=== PATIENT | male | born 1965 | race Caucasian/White ===

== ENCOUNTER 2017-07-20 16:23 | Inpatient (IN) ==
[2017-07-20 17:37] LABS: INR 1.1; Prothrombin Time 11.4 Seconds (9.4-12.1)
[2017-07-20 17:40] LABS: Activated Partial Thrombo Time 31.5 Seconds (26.0-36.0)
[2017-07-20 17:43] LABS: Basophils # 0.1 K/mcL (0.0-0.2); Basophils % 0.5 %; Eosinophils # 0.3 K/mcL (0.0-0.6); Hematocrit 46.2 % (37.5-50.1); Hemoglobin 14.9 g/dL (12.9-16.9); Immature Granulocytes % 0.8 % (0-4); Lymphocytes # 2.9 K/mcL (0.6-4.6); Lymphocytes % 25.4 %; Mean Corpuscular HGB Conc 32.3 g/dL (31.6-35.5); Mean Corpuscular Hemoglobin 26.3 pg (28.0-33.3); Mean Corpuscular Volume 81.6 fL (83.0-100.0); Mean Platelet Volume 9.4 fL (9.4-12.4); Monocytes # 1.2 K/mcL (0.0-1.3); Monocytes % 10.6 %; Neutrophils # 6.8 K/mcL (1.6-8.9); Platelet Count 370 K/mcL (140-400); Red Blood Count 5.66 M/mcL (4.19-5.50); Red Cell Distribution Width 15.3 % (11.5-14.5); Segmented Neutrophils % 59.7 %
[2017-07-20 17:45] LABS: BUN/Creatinine Ratio 13 (6-26); Blood Urea Nitrogen 13 mg/dL (8-26); Calcium 9.2 mg/dL (8.6-10.8); Carbon Dioxide 25 mEq/L (19-29); Chloride 100 mEq/L (98-109); Glucose 126 mg/dL (70-99); Osmolality,Calculated 290 (280-300); Potassium 3.7 mEq/L (3.5-4.5); Sodium 139 mEq/L (136-145); eGFR For African Americans > 60 (> 60); eGFR For Non-African Americans > 60 (> 60)
[2017-07-20] MEDS ORDERED: 0.9 % Sodium Chloride 500 ML IVC ONE (18:22)
[2017-07-20] MEDS ORDERED: Ipratropium/Albuterol Neb 3 ML IH ONE (19:46)
--- NOTE | 2017-07-20 20:04 | Emergency Department Note ---
Disposition Clinical Impression: Unstable angina pectoris Chest pain Qualifiers: Chest pain type: chest pain due to myocardial ischemia Ischemic chest pain type : unstable angina pectoris Qualified Code(s): I20.0 - Unstable angina Disposition: Home, Self-Care Condition: Fair Time of Disposition: 20:46 Chest Pain HPI - General Chief Complaint: ED Chest Pain Stated Complaint: CP/MELISSA Time Seen by Provider: 07/20/17 18:07 Source: patient Limitations: no limitations Vital Signs Reviewed: Yes Nursing Notes Reviewed: Yes - History of Present Illness HPI Narrative: 51-year-old male presents to ED due to chest pain. He has had recurring chest discomfort with exertional dyspnea over the past couple of weeks. Symptoms are worse with exertion and better with rest. Denies orthopnea. No fevers or chills. No productive cough. Pt complaint: chest pain Onset (ago): week(s) Duration: intermittent Onset: during exertion Pain Location: substernal Severity: moderate Severity scale (1-10): 0 Quality: tightness Pain Radiation: LUE Improves with: rest Worsens with: exertion Associated symptoms: Denies: nausea, vomiting, syncope, palpitations Treatments prior to arrival chest pain: none - Related Data Home Medications Medication Instructions Recorded Confirmed Albuterol Sulfate [Ventolin Hfa] 2 puff IH QID PRN 04/21/17 07/20/17 Aspirin [Lo-Dose Aspirin EC] 81 mg PO DAILY 04/21/17 07/20/17 Carvedilol [Coreg] 6.25 mg PO BIDWM 04/21/17 07/20/17 Ergocalciferol (VITAMIN D2) 2,000 unit PO DAILY 04/21/17 07/20/17 [Vitamin D2] Furosemide [Lasix] 40 mg PO DAILY 04/21/17 07/20/17 Glimepiride [Amaryl] 2 mg PO QAM 04/21/17 07/20/17 Levothyroxine Sodium [Tirosint] 25 mcg PO DAILY 04/21/17 07/20/17 Losartan Potassium [Cozaar] 50 mg PO DAILY 04/21/17 07/20/17 Montelukast Sodium [Singulair] 10 mg PO DAILY 04/21/17 07/20/17 Pantoprazole Sodium [Protonix] 40 mg PO DAILY 04/21/17 07/20/17 Polyethylene Glycol 3350 [MiraLAX] 17 gm PO BID PRN 04/21/17 07/20/17 Simethicone [Phazyme] 180 mg PO BID PRN 04/21/17 07/20/17 Budesonide/Formoterol 80/4.5 2 puff IH BID 07/20/17 07/20/17 [Symbicort 80/4.5] Diclofenac Sodium [Voltaren] 2 - 4 gm TP QID PRN 07/20/17 07/20/17 Empagliflozin [Jardiance] 25 mg PO DAILY 07/20/17 07/20/17 Isosorbide MONOnitrate (24 HR) 30 mg PO DAILY 07/20/17 07/20/17 [Imdur] Lovastatin 40 mg PO HS 07/20/17 07/20/17 Meclizine HCl [Verticalm] 25 mg PO DAILY PRN 07/20/17 07/20/17 Metformin HCl [Glucophage] 1,000 mg PO BID 07/20/17 07/20/17 Nitroglycerin [Nitrolingual] 1 spray TL DAILY 07/20/17 07/20/17 Allergies Allergy/AdvReac Type Severity Reaction Status Date / Time No Known Allergies Allergy Unverified 03/17/17 09:00 All systems ED: reviewed and negative except as stated. Constitutional: Reports: weakness. Denies: fever Cardiovascular: Reports: chest pain. Denies: palpitations Respiratory: Reports: dyspnea. Denies: cough Endocrine: Reports: fatigue Chest Pain PMH - Past Medical History Medical history: Reports: CHF, COPD, coronary artery disease (Cardiac catheter April this year revealed 90% circumflex lesion; treated medically), diabetes , hyperlipidemia, hypertension Surgical history: Reports: orthopedic, other Psychiatric history: Reports: no psych history - Social History Smoking Status: Never smoker Alcohol use: Reports: none Drug use: Reports: none Physical Exam - General Limitations: no limitations General appearance: alert, in no apparent distress - Head Head exam: atraumatic, normocephalic - Eye Eye exam: Present: normal appearance - ENT ENT exam: normal exam, normal oropharynx - Neck Neck exam: Present: normal inspection - Chest Chest inspection: Present: normal inspection, symmetric chest wall rise - Respiratory Respiratory exam: Present: normal lung sounds bilaterally, wheezes. Absent: respiratory distress - Cardiovascular Cardiovascular exam: Present: regular rate, normal rhythm - Abdominal Exam Abdominal exam: Present: soft, Non-Tender, normal bowel sounds - Extremities Exam Extremities exam: Present: normal capillary refill. Absent: tenderness, calf tenderness - Back Exam Back exam: Present: normal inspection - Neurological Exam Neurological exam: Present: alert, oriented X3 - Psychiatric Psychiatric exam: Present: normal affect, normal mood - Skin Skin exam: Present: warm, dry Course - Reevaluation(s) Reevaluation #1: Awaiting CTA reading Time: 20:05 Reevaluation #2: D/W Dr. Diallo to admit; he requested starting IV heparin Time: 20:44 Vital Signs Temperature 98.2 F 07/20/17 16:35 Pulse Rate 106 07/20/17 16:35 Respiratory Rate 16 07/20/17 16:35 Blood Pressure 145/87 07/20/17 16:35 O2 Sat by Pulse Oximetry 93 07/20/17 16:35 Temperature 97.7 F 07/21/17 15:12 Pulse Rate 83 07/21/17 15:12 Respiratory Rate 14 07/21/17 15:12 Blood Pressure 137/69 07/21/17 15:12 O2 Sat by Pulse Oximetry 97 07/21/17 15:12 Oxygen Delivery Oxygen Delivery Nasal Cannula Chest Pain - Lab Data Result diagrams: 07/21/17 04:12 07/21/17 04:12 Lab Results 07/20/17 07/20/17 07/20/17 Range/Units 17:25 17:25 17:25 WBC 11.4 H (4.3-11.1) K/mcL RBC 5.66 H (4.19-5.50) M/mcL Hgb 14.9 (12.9-16.9) g/dL Hct 46.2 (37.5-50.1) % MCV 81.6 L (83.0-100.0) fL MCH 26.3 L (28.0-33.3) pg MCHC 32.3 (31.6-35.5) g/dL RDW 15.3 H (11.5-14.5) % Plt Count 370 (140-400) K/mcL MPV 9.4 (9.4-12.4) fL Immature Gran % 0.8 (0-4) % Seg Neutrophils % 59.7 % Lymphocytes % 25.4 % Monocytes % 10.6 % Eosinophils % 3.0 % Basophils % 0.5 % Neutrophils # 6.8 (1.6-8.9) K/mcL Lymphocytes # 2.9 (0.6-4.6) K/mcL Monocytes # 1.2 (0.0-1.3) K/mcL Eosinophils # 0.3 (0.0-0.6) K/mcL Basophils # 0.1 (0.0-0.2) K/mcL PT 11.4 (9.4-12.1) Seconds INR 1.1 APTT 31.5 (26.0-36.0) Seconds Sodium 139 (136-145) mEq/L Potassium 3.7 (3.5-4.5) mEq/L Chloride 100 (98-109) mEq/L Carbon Dioxide 25 (19-29) mEq/L BUN 13 (8-26) mg/dL Creatinine 1.03 (0.72-1.25) mg/dL Est GFR ( Amer) > 60 (> 60) Est GFR (Non-Af Amer) > 60 (> 60) BUN/Creatinine Ratio 13 (6-26) Glucose 126 H (70-99) mg/dL POC Glucose (58-89) Calculated Osmolality 290 (280-300) Calcium 9.2 (8.6-10.8) mg/dL Troponin I (0-0.03) ng/mL 07/20/17 07/20/17 07/20/17 Range/Units 17:25 21:02 22:41 WBC (4.3-11.1) K/mcL RBC (4.19-5.50) M/mcL Hgb (12.9-16.9) g/dL Hct (37.5-50.1) % MCV (83.0-100.0) fL MCH (28.0-33.3) pg MCHC (31.6-35.5) g/dL RDW (11.5-14.5) % Plt Count (140-400) K/mcL MPV (9.4-12.4) fL Immature Gran % (0-4) % Seg Neutrophils % % Lymphocytes % % Monocytes % % Eosinophils % % Basophils % % Neutrophils # (1.6-8.9) K/mcL Lymphocytes # (0.6-4.6) K/mcL Monocytes # (0.0-1.3) K/mcL Eosinophils # (0.0-0.6) K/mcL Basophils # (0.0-0.2) K/mcL PT (9.4-12.1) Seconds INR APTT 31.5 (26.0-36.0) Seconds Sodium (136-145) mEq/L Potassium (3.5-4.5) mEq/L Chloride (98-109) mEq/L Carbon Dioxide (19-29) mEq/L BUN (8-26) mg/dL Creatinine (0.72-1.25) mg/dL Est GFR ( Amer) (> 60) Est GFR (Non-Af Amer) (> 60) BUN/Creatinine Ratio (6-26) Glucose (70-99) mg/dL POC Glucose 128 H (58-89) Calculated Osmolality (280-300) Calcium (8.6-10.8) mg/dL Troponin I 0.02 (0-0.03) ng/mL - EKG Data EKG attestation: Yes I reviewed and interpreted this EKG. EKG shows normal: sinus rhythm Rate: normal Rhythm: NSR [place]/QRS: normal Critical Care Time Total Critical Care Time: 32 Attestation: The high probability of a clinically significant, sudden or life threatening deterioration of the [cardiovascular] system(s) required my full and direct attention, intervention and personal management. The aggregate critical care time was [32] minutes. This time is in addition to time spent performing reported procedures but includes the following: [x] Data Review and interpretation [x] Patient assessment and monitoring of vital signs [x] Documentation [x] Medication orders and management
[2017-07-20] MEDS ORDERED: Aspirin 81 MG TAB.CHEW PO ONE (20:16)
[2017-07-20] MEDS ORDERED: *HR* Metoprolol 5 MG/5 ML VIAL IVP ONE (20:25)
[2017-07-20] MEDS ORDERED: Heparin 25,000 UNIT/500 ML D5W 25,000 UNIT/500 ML MLS IVC SCH (20:45)
[2017-07-21] MEDS ORDERED: Acetaminophen 325 MG TABLET PO PRN (01:18)
[2017-07-21] MEDS ORDERED: *HR* Promethazine 25 MG/ML VIAL IVP PRN (01:18)
[2017-07-21] MEDS ORDERED: Naloxone 0.4 MG/ML INJ IVP PRN (01:18)
[2017-07-21] MEDS ORDERED: *HR* Morphine 2 MG/ML SYRINGE IVP PRN (01:18)
[2017-07-21] MEDS ORDERED: *HR* Dextrose 50 % in Water (Syg) 50 ML SYRINGE IVP PRN (01:26)
[2017-07-21] MEDS ORDERED: Dextrose Gel 15 GM PO PRN ×2 (01:26)
[2017-07-21] MEDS ORDERED: D5% in Water 1,000 ML IVC PRN (01:26)
[2017-07-21] MEDS ORDERED: Simethicone 80 MG TAB.CHEW PO PRN (01:27)
--- NOTE | 2017-07-21 03:08 | Internal Med History&Physical ---
Date of Encounter: 07/21/17 Time of Encounter: 01:30 Assessment and Plan (1) Unstable angina pectoris Current visit: Yes Status: Acute 1. Patient currently chest pain free. 2. Continue heparin drip. 3. Continue home meds as appropriate. 4. IV Morphine PRN chest pain. 5. Consult cardiology for possible LHC. (2) Type 2 diabetes mellitus Current visit: Yes Status: Chronic 1. Hold oral meds. 2. Will use SSI and monitor glucose. 3. Adjust insulin dosing as needed. Qualifiers: Diabetes mellitus complication status: without complication Diabetes mellitus nursing home insulin use: without nursing home use Qualified Code(s): E11.9 - Type 2 diabetes mellitus without complications (3) Extravasation injury of IV catheter site with other complication Current visit: Yes Status: Acute 1. Hyaluronidase injected per Rn and equipment operator warehouse per protocol after I assessed patient. 2. Patient does not appear to have compartment syndrome on exam. He has intact neurovasculature. 3. Keep arm elevated. 4. I contacted and consulted Dr. Parkinson who will see him this morning. Qualifiers: Encounter type: initial encounter Qualified Code(s): T82.898A - Other specified complication of vascular prosthetic devices, implants and grafts, initial encounter (4) DVT prophylaxis Current visit: Yes Status: Acute 1. Patient remains on heparin drip. Internal Medicine - H&P: HPI Chief complaint: chest pain Admitted From: Emergency Dept Plans for Post Hospital Care: Home History of present illness: Mr. West is a 51 year old male who presented to [facility] with complaints of chest pain and pressure. He has been having significant anginal symptoms, especially with exertion. Symptoms were relieved by rest. He was evaluated by his PCP earlier yesterday who referred him to the ER [facility] for subsequent admission. In the ER, he received an aspirin and beta david and was placed on heparin drip. Cardiology was contacted and consulted by ER. He was subsequently admitted to the hospitalist service. I was called by his nurse STAT to the room once he arrived in the ER. His nurse noted that his right arm is entirely swollen at this time, shortly after having received IV contrast for a CT angiogram done in the ER. Apparently, his IV contrast extravasated into his arm from his IV. According to the 2 NE nurse , patient had not yet received any hyaluronidase injection. I came by to assess patient upon his request and noted his right arm swollen compared his left arm. Patient states this happened right after the injection, and he had pain with the IV contrast. The pain has subsided now, but the swelling persists. He does have a good pulse in his arm and elbow and hand. His neurovascular function remains intact. In particular, he has no sensory deficit and is able to move his right hand and fingers without difficulty. I asked the equipment operator warehouse to come and assist his nurse with hyaluronidase per protocol. I then contacted Dr. Parkinson from orthopedics and requested a consult from him this morning. At the present time, I do not feel he has compartment syndrome, but I asked his nurse to watch him closely and to contact me should he have any neurovascular compromise. Regarding his chest pain, he remains chest pain-free. He denies any dyspnea. He denies any fevers, cough, chest congestion, vomiting, or diarrhea. Past Med Surg Social Fam HX - Past Medical History Attestation: Yes The following information was validated with the patient. Source: patient, old records reviewed Medical history: CHF, COPD, coronary artery disease, diabetes, hyperlipidemia, hypertension Psychiatric history: no psych history - Past Surgical History Surgical History: angioplasty/stent, orthopedic, other - Social History Smoking Status: Never smoker Smokeless Tobacco Status: No Alcohol use: none Drug use: none Current living situation: Home, With Family Activity Level: Independent ambulation Recent Out of Country Travel Within the Last 8 Weeks: No - Family History Mother History Unknown: Yes Living Status: Cause of : myocardial infarction Hx Family Cardiac Disorders: Yes Father History Unknown: Yes Hx Family Cardiac Disorders: Yes Internal Medicine - H&P: Meds Albuterol Sulfate [Ventolin Hfa] 2 puff IH QID PRN 04/21/17 [History] Aspirin [Lo-Dose Aspirin EC] 81 mg PO DAILY 04/21/17 [History] Carvedilol [Coreg] 6.25 mg PO BIDWM 04/21/17 [History] Ergocalciferol (VITAMIN D2) [Vitamin D2] 2,000 unit PO DAILY 04/21/17 [History] Furosemide [Lasix] 40 mg PO DAILY 04/21/17 [History] Glimepiride [Amaryl] 2 mg PO QAM 04/21/17 [History] Levothyroxine Sodium [Tirosint] 25 mcg PO DAILY 04/21/17 [History] Losartan Potassium [Cozaar] 50 mg PO DAILY 04/21/17 [History] Montelukast Sodium [Singulair] 10 mg PO DAILY 04/21/17 [History] Pantoprazole Sodium [Protonix] 40 mg PO DAILY 04/21/17 [History] Polyethylene Glycol 3350 [MiraLAX] 17 gm PO BID PRN 04/21/17 [History] Simethicone [Phazyme] 180 mg PO BID PRN 04/21/17 [History] Budesonide/Formoterol 80/4.5 [Symbicort 80/4.5] 2 puff IH BID 07/20/17 [History ] Diclofenac Sodium [Voltaren] 2 - 4 gm TP QID PRN 07/20/17 [History] Empagliflozin [Jardiance] 25 mg PO DAILY 07/20/17 [History] Isosorbide MONOnitrate (24 HR) [Imdur] 30 mg PO DAILY 07/20/17 [History] Lovastatin 40 mg PO HS 07/20/17 [History] Meclizine HCl [Verticalm] 25 mg PO DAILY PRN 07/20/17 [History] Metformin HCl [Glucophage] 1,000 mg PO BID 07/20/17 [History] Nitroglycerin [Nitrolingual] 1 spray TL DAILY 07/20/17 [History] 3 Allergy/AdvReac Type Severity Reaction Status Date / Time No Known Allergies Allergy Unverified 03/17/17 09:00 - Constitutional Constitutional: no chills, no fever(s), no night sweats - EENT Eyes: no blurry vision, no change in vision Ears: no ear pain, no tinnitus Nose, mouth and throat: no nasal congestion, no sinus pressure, no sore throat - Cardiovascular Cardiovascular ROS IM: chest pain, diaphoresis, dyspnea, dyspnea on exertion, no orthopnea, no paroxysmal nocturnal dyspnea, no syncope - Respiratory Respiratory: no cough, no hemoptysis, no chest congestion - Gastrointestinal Gastrointestinal: no abdominal pain, no diarrhea, no hematemesis, no hematochezia, no melena, no nausea, no vomiting - Genitourinary Genitourinary ROS male: no dysuria, no flank pain, no hematuria - Musculoskeletal Musculoskeletal ROS IM: deformity (right arm swelling after IV contrast study in CT scan), no arthralgias, no back pain - Integumentary Integumentary IM: no rash, no jaundice - Neurological Neurological ROS: no dizziness, no focal weakness, no frequent falls, no headache(s), no tingling - Psychiatric Psychiatric: no anxiety, no depression - Endocrine Endocrine IM: no polydipsia, no polyuria - Allergic/Immunologic Allergic/Immunologic: no wheezing, no GI upset with certain foods - Constitutional Vitals: Temp Pulse Resp BP Pulse Ox 97.4 F L 80 20 123/78 94 07/20/17 22:56 07/20/17 22:56 07/20/17 22:56 07/20/17 22:56 07/20/17 22:56 General appearance: Present: cooperative, A&O X 3, pleasant, no acute distress, answers questions appropriately - Head Head exam: Present: atraumatic, normal inspection - Eye Eye exam: Present: EOMI, normal appearance, PERRL. Absent: scleral icterus Pupils: Present: normal accommodation - ENT ENT exam: Present: normal exam, normal oropharynx. Absent: mucous membranes dry - Neck Neck exam general surgery: Present: full ROM, supple. Absent: tenderness, nuchal rigidity - Expanded Neck Exam Neck exam: Absent: carotid bruit - Respiratory Respiratory exam: Present: CTAB. Absent: chest wall tenderness, rales, rhonchi , wheezes - Cardiovascular Cardiovascular exam: Present: RRR, +S1, +S2. Absent: diastolic murmur, systolic murmur - GI/Abdominal GI/Abdominal exam: Present: normal bowel sounds, soft. Absent: guarding, hepatomegaly, mass, rebound, splenomegaly, tenderness - Extremities Exam Extremities exam: Present: full ROM, normal capillary refill, tenderness (mild pain but prominent swelling right arm from biceps down to wrist from IV dye injection; good pulses in right arm/hand; neurovascular intact), warm, radial pulses palpable and symmetrical. Absent: calf tenderness, mottling - Back Exam Back exam: Present: normal inspection. Absent: CVA tenderness (L), CVA tenderness (R) - Neurological Exam Neurological exam: Present: alert, CN II-XII intact, oriented X3, no focal deficits, strengths equal and symetr throughout - Psychiatric Psychiatric exam: Present: normal affect, normal mood - Skin Skin exam: Present: dry, warm. Absent: rash Internal Med - H&P Results - Labs CBC & Chem 7: 07/20/17 17:25 07/20/17 17:25 - EKG Data -: EKG Interpreted by Myself EKG shows normal: sinus rhythm - EKG Data EKG comments: 07/21/17 03:18 Sinus rhythm; subtle ST depression noted - Diagnostic Studies Chest x-ray Status: image reviewed by me (negative) - VTE Reasons for not Prescribing Prophylaxis: Not indicated-Anticoagulated or INR therapeutic
[2017-07-21 04:35] LABS: Basophils # 0.1 K/mcL (0.0-0.2); Basophils % 0.6 %; Eosinophils # 0.3 K/mcL (0.0-0.6); Hematocrit 41.7 % (37.5-50.1); Hemoglobin 13.5 g/dL (12.9-16.9); Immature Granulocytes % 0.6 % (0-4); Lymphocytes # 2.3 K/mcL (0.6-4.6); Lymphocytes % 27.3 %; Mean Corpuscular HGB Conc 32.4 g/dL (31.6-35.5); Mean Corpuscular Hemoglobin 26.5 pg (28.0-33.3); Mean Corpuscular Volume 81.9 fL (83.0-100.0); Mean Platelet Volume 9.4 fL (9.4-12.4); Monocytes # 0.8 K/mcL (0.0-1.3); Neutrophils # 4.9 K/mcL (1.6-8.9); Platelet Count 297 K/mcL (140-400); Red Blood Count 5.09 M/mcL (4.19-5.50); Red Cell Distribution Width 15.4 % (11.5-14.5); Segmented Neutrophils % 58.5 %
[2017-07-21 04:56] LABS: Alanine Aminotransferase 42 Units/L (0-55); Albumin 3.5 g/dL (3.5-5.0); Albumin/Globulin Ratio 0.9 (1.1-2.2); Alkaline Phosphatase 94 Units/L (38-126); Aspartate Amino Transferase 22 Units/L (5-34); BUN/Creatinine Ratio 14 (6-26); Bilirubin,Total 0.4 mg/dL (0.2-1.2); Blood Urea Nitrogen 12 mg/dL (8-26); Calcium 8.8 mg/dL (8.6-10.8); Carbon Dioxide 24 mEq/L (19-29); Chloride 101 mEq/L (98-109); Chol/HDL Ratio 5.9 (0-4.9); Cholesterol 159 mg/dL (< 200); Globulin 3.7 g/dL (2.4-3.5); Glucose 132 mg/dL (70-99); HDL Cholesterol 27 mg/dL (40-59); LDL Cholesterol,Calculated 71 mg/dL (0-99); Magnesium 1.8 mg/dL (1.6-2.6); Osmolality,Calculated 290 (280-300); Potassium 3.2 mEq/L (3.5-4.5); Sodium 139 mEq/L (136-145); Total Protein 7.2 g/dL (6.0-8.3); Triglycerides 304 mg/dL (< 150); eGFR For African Americans > 60 (> 60); eGFR For Non-African Americans > 60 (> 60)
[2017-07-21] MEDS ORDERED: *HR* Heparin 5,000 UNIT/ML VIAL IVP PRN ×4 (05:43→05:51)
[2017-07-21] MEDS: Insulin LISPRO 300 UNITS/3 ML VIAL SQ SCH ×3 (05:49→19:03)
[2017-07-21] MEDS: Levothyroxine 25 MCG TABLET PO SCH (05:49)
[2017-07-21] MEDS ORDERED: Heparin 25,000 UNIT/500 ML D5W 25,000 UNIT/500 ML MLS IVC SCH (06:00)
--- NOTE | 2017-07-21 07:29 | Orthopedic Consult Note ---
Date of Encounter: 07/21/17 Time of Encounter: 07:28 Assessment and Plan (1) Extravasation injury of IV catheter site with other complication Current Visit: Yes Status: Acute I did discuss the diagnosis in detail with the patient. My recommendation is for elevation, ice, and anti-inflammatories. He has already had significant improvement in the symptoms. No concern for compartment syndrome. No need for surgical intervention. At this point I will be available as needed for reconsultation for any new or worsening concerns. Qualifiers: Encounter type: initial encounter Qualified Code(s): T82.898A - Other specified complication of vascular prosthetic devices, implants and grafts, initial encounter History of Present Illness HPI: Mr. West is a 51 year old male admitted to the hospitalist. Yesterday he underwent CT scan with contrast and an extravasation event occurred in the right upper extremity in the antecubital fossa region. He did have swelling and I was consulted to evaluate the upper extremity for further evaluation and management. The patient notes improvement of his pain which he says is minimal and localized to the anterior distal brachium and antecubital fossa region. No numbness, tingling, or any other associated signs or symptoms. No modifying factors. Past Med Surg Social Fam HX - Past Medical History Medical history: CHF, COPD, coronary artery disease, diabetes, hyperlipidemia, hypertension Psychiatric history: no psych history - Past Surgical History Surgical History: angioplasty/stent, orthopedic, other - Social History Smoking Status: Never smoker Smokeless Tobacco Status: No Alcohol use: none Drug use: none - Family History Mother History Unknown: Yes Living Status: Cause of : myocardial infarction Hx Family Cardiac Disorders: Yes Father History Unknown: Yes Hx Family Cardiac Disorders: Yes Medications and Allergies Albuterol Sulfate [Ventolin Hfa] 2 puff IH QID PRN 04/21/17 [History] Aspirin [Lo-Dose Aspirin EC] 81 mg PO DAILY 04/21/17 [History] Carvedilol [Coreg] 6.25 mg PO BIDWM 04/21/17 [History] Ergocalciferol (VITAMIN D2) [Vitamin D2] 2,000 unit PO DAILY 04/21/17 [History] Furosemide [Lasix] 40 mg PO DAILY 04/21/17 [History] Glimepiride [Amaryl] 2 mg PO QAM 04/21/17 [History] Levothyroxine Sodium [Tirosint] 25 mcg PO DAILY 04/21/17 [History] Losartan Potassium [Cozaar] 50 mg PO DAILY 04/21/17 [History] Montelukast Sodium [Singulair] 10 mg PO DAILY 04/21/17 [History] Pantoprazole Sodium [Protonix] 40 mg PO DAILY 04/21/17 [History] Polyethylene Glycol 3350 [MiraLAX] 17 gm PO BID PRN 04/21/17 [History] Simethicone [Phazyme] 180 mg PO BID PRN 04/21/17 [History] Budesonide/Formoterol 80/4.5 [Symbicort 80/4.5] 2 puff IH BID 07/20/17 [History ] Diclofenac Sodium [Voltaren] 2 - 4 gm TP QID PRN 07/20/17 [History] Empagliflozin [Jardiance] 25 mg PO DAILY 07/20/17 [History] Isosorbide MONOnitrate (24 HR) [Imdur] 30 mg PO DAILY 07/20/17 [History] Lovastatin 40 mg PO HS 07/20/17 [History] Meclizine HCl [Verticalm] 25 mg PO DAILY PRN 07/20/17 [History] Metformin HCl [Glucophage] 1,000 mg PO BID 07/20/17 [History] Nitroglycerin [Nitrolingual] 1 spray TL DAILY 07/20/17 [History] 3 Allergy/AdvReac Type Severity Reaction Status Date / Time No Known Allergies Allergy Unverified 03/17/17 09:00 All Systems Reviewed: A 10-system review of systems was performed and is negative for pertinent findings except as documented above in the HPI. Physical Exam - Constitutional Vitals: Temp Pulse Resp BP Pulse Ox 97.6 F 78 14 136/76 93 07/21/17 06:22 07/21/17 06:22 07/21/17 06:22 07/21/17 06:22 07/21/17 06:22 CONSTITUTIONAL -Vitals reviewed -The patient is well developed, well nourished, well groomed PSYCHIATRIC -Fully alert and oriented -Pleasant mood RIGHT UPPER EXTREMITY Inspection shows minimal swelling to the right brachium and forearm region. Compartments are all soft and compressible and the brachium and forearm. Full active and passive motion of the shoulder, elbow, wrist, and digits The patient can actively flex and extend all digits, extend the thumb, cross the index and long fingers, make an okay sign, and oppose the thumb. The fingertips are all grossly sensate and well-perfused, and the radial artery pulse is 2+. Results - Labs Result Diagrams: 07/21/17 04:12 07/21/17 04:12 Labs: Abnormal lab results MCV 81.9 fL (83.0-100.0) L 07/21/17 04:12 MCH 26.5 pg (28.0-33.3) L 07/21/17 04:12 RDW 15.4 % (11.5-14.5) H 07/21/17 04:12 APTT 37.7 Seconds (26.0-36.0) H 07/21/17 04:12 Potassium 3.2 mEq/L (3.5-4.5) L 07/21/17 04:12 Glucose 132 mg/dL (70-99) H 07/21/17 04:12 POC Glucose 128 (58-89) H 07/21/17 05:46 Globulin 3.7 g/dL (2.4-3.5) H 07/21/17 04:12 Albumin/Globulin Ratio 0.9 (1.1-2.2) L 07/21/17 04:12 Triglycerides 304 mg/dL (< 150) H 07/21/17 04:12 VLDL Cholesterol, Calc 61 mg/dL (< 31) H 07/21/17 04:12 HDL Cholesterol 27 mg/dL (40-59) L 07/21/17 04:12 Cholesterol/HDL Ratio 5.9 (0-4.9) H 07/21/17 04:12 H & H 07/21/17 Range/Units 04:12 Hgb 13.5 (12.9-16.9) g/dL Hct 41.7 (37.5-50.1) % All other labs normal. Consult Discharge Plan - Plan Referrals: Betsy Spencer, LOT ATTENDANT [Primary Care Provider] -
[2017-07-21] MEDS: Budesonide/Formoterol 80/4.5 MDI IH SCH ×2 (08:14→22:34)
[2017-07-21] MEDS ORDERED: Potassium Chloride 20 MEQ, Lidocaine 1% 2 ML in D5% in Water 250 ML IVPB ONE (08:49)
[2017-07-21] MEDS ORDERED: Isosorbide MONOnitrate (24 HR) 30 MG TAB.ER.24H PO SCH (09:00)
[2017-07-21] MEDS ORDERED: Nitroglycerin Spray 4.9 GM BOTTLE TL PRN (09:00)
[2017-07-21] MEDS: Aspirin Enteric Coated 81 MG Tablet PO SCH (09:47)
[2017-07-21] MEDS: Cholecalciferol (D-3) 1,000 UNIT TABLET PO SCH (09:47)
[2017-07-21] MEDS: Isosorbide MONOnitrate (24 HR) 60 MG TAB.ER.24H PO SCH (09:56)
--- NOTE | 2017-07-21 11:20 | Cardiology Consult Note ---
<Keyon Mcdonald - Last Filed: 07/21/17 17:01> Date of Encounter: 07/21/17 Time of Encounter: 11:20 Assessment and Plan (1) Chest pain Current Visit: Yes Status: Acute Per Cardiology: Occurs mainly at rest. Trops - x 3. ECG comparable to baseline. Now CP free. Reports improved with O2. Will DC IV Hep gtt. Qualifiers: Chest pain type: chest pain due to myocardial ischemia Ischemic chest pain type: unstable angina pectoris Qualified Code(s): I20.0 - Unstable angina (2) CAD (coronary artery disease) Current Visit: Yes Status: Chronic Per Cardiology: Known hx of CAD. Last [facility] 04/2017: Lesion Findings/Interventions * Left Main Coronary Artery There is a 30% stenosis in the proximal LMCA. The lesion has a JOSIAH flow of 3. * Left Anterior Descending The LAD is angiographically free of disease. The 1st Diagonal is angiographically free of disease. * Circumflex The Distal Circumflex is small in size. There is a 90% stenosis in the Distal Circumflex. The lesion has a JOSIAH flow of 3. * Right Coronary Artery There is a 30% stenosis in the Mid RCA. The lesion has a JOSIAH flow of 3. Distal circ lesion deemed small vessel being medically managed. On asa, statrin , BB, ARB, long acting nitrate. Will titrate Imdur. Patient agreeable. Will s/o , reconsult PRN, f/u scheduled. Discussed with Dr. Fernandez. Consider titrate Imdur or add Ranexa as outpatient. Qualifiers: Coronary Disease-Associated Artery/Lesion type: andreafski artery [place] vs. transplanted heart: andreafski heart Associated angina: without angina Qualified Code(s): I25.10 - Atherosclerotic heart disease of andreafski coronary artery without angina pectoris (3) Edema Current Visit: Yes Status: Chronic Per Cardiology: Overall edema appears improved from baseline. Weights are improved as well. He reports taking Lasix at home. I provided education regarding low sodium diet and 2 L fluid restriction. Qualifiers: Edema type: unspecified Qualified Code(s): R60.9 - Edema, unspecified Discussion w patient/family: The assessment and plan as outlined above was discussed with the patient who expressed understanding and agreement. All questions were answered. Thank you for involving us in the care of your patient. Please call with any questions. History of Present Illness Consult date: 07/21/17 Requesting physician: Jenaro Brandon Consult reason: CP Chief complaint: CP History of present illness: Mr. West is a 51 year old male with a past hx of CAD. Has known disease being medically managed. C/s for cp. Patient reports midsternal chest tightness at rest while driving this past Thursday. He reports symptoms were intermittent and lasted for a few minutes. He reports multiple recurrences throughout the day. He did not utilize nitroglycerin pills. Reports compliance with medications and taking long-acting nitrate. He reports he saw his PCP earlier this week with ambulation causing increased size of breath and noted to have hypoxia. At that point was sent to the ER. He reports history of COPD and does not utilize home O2. He reports during hospital stay with oxygen chest pain has resolved. He denies any active bleeding or blood loss. Denies any other concerns or complaints. Reports recently treated for ear infection and no longer taking antibiotics. He does report he takes Lasix at home and overall his weights and swelling are improved from baseline. Past Med Surg Social Fam HX - Past Medical History Attestation: Yes The following information was validated with the patient. Source: patient, old records reviewed Medical history: CHF, COPD, coronary artery disease, diabetes, hyperlipidemia, hypertension Psychiatric history: no psych history - Past Surgical History Surgical History: angioplasty/stent, orthopedic, other - Social History Smoking Status: Never smoker Smokeless Tobacco Status: No Alcohol use: none Drug use: none - Family History Mother History Unknown: Yes Living Status: Cause of : myocardial infarction Hx Family Cardiac Disorders: Yes Father History Unknown: Yes Hx Family Cardiac Disorders: Yes Medications and Allergies Albuterol Sulfate [Ventolin Hfa] 2 puff IH QID PRN 04/21/17 [History] Aspirin [Lo-Dose Aspirin EC] 81 mg PO DAILY 04/21/17 [History] Carvedilol [Coreg] 6.25 mg PO BIDWM 04/21/17 [History] Ergocalciferol (VITAMIN D2) [Vitamin D2] 2,000 unit PO DAILY 04/21/17 [History] Furosemide [Lasix] 40 mg PO DAILY 04/21/17 [History] Glimepiride [Amaryl] 2 mg PO QAM 04/21/17 [History] Levothyroxine Sodium [Tirosint] 25 mcg PO DAILY 04/21/17 [History] Losartan Potassium [Cozaar] 50 mg PO DAILY 04/21/17 [History] Montelukast Sodium [Singulair] 10 mg PO DAILY 04/21/17 [History] Pantoprazole Sodium [Protonix] 40 mg PO DAILY 04/21/17 [History] Polyethylene Glycol 3350 [MiraLAX] 17 gm PO BID PRN 04/21/17 [History] Simethicone [Phazyme] 180 mg PO BID PRN 04/21/17 [History] Budesonide/Formoterol 80/4.5 [Symbicort 80/4.5] 2 puff IH BID 07/20/17 [History ] Diclofenac Sodium [Voltaren] 2 - 4 gm TP QID PRN 07/20/17 [History] Empagliflozin [Jardiance] 25 mg PO DAILY 07/20/17 [History] Isosorbide MONOnitrate (24 HR) [Imdur] 30 mg PO DAILY 07/20/17 [History] Lovastatin 40 mg PO HS 07/20/17 [History] Meclizine HCl [Verticalm] 25 mg PO DAILY PRN 07/20/17 [History] Metformin HCl [Glucophage] 1,000 mg PO BID 07/20/17 [History] Nitroglycerin [Nitrolingual] 1 spray TL DAILY 07/20/17 [History] 3 Allergy/AdvReac Type Severity Reaction Status Date / Time No Known Allergies Allergy Unverified 03/17/17 09:00 All Systems Review: A 10-system review of systems was performed and is negative for pertinent findings except as documented above in the HPI. - Cardiovascular Cardiovascular: as per HPI, chest pain at rest, dyspnea on exertion, radiating jaw, neck or arm pain, leg edema Physical Examination Vital Signs, Last 4 Hours Temp Pulse Resp BP Pulse Ox 07/21/17 10:28 97.6 F 83 14 128/68 91 07/21/17 08:14 16 93 General: Conversant, No Apparent Distress HEENT: Atraumatic, Normocephaly, Mucus Membranes Moist Neck: No JVD, Normal carotid pulses Cardiac: Reg Rate and Rhythm, Normal S1 and S2, No Murmur Lungs: Normal Breath Sounds, No Wheeze, Rales, Rhonchi Neuro: Alert and responsive, No focal deficits noted Abdomen: Soft, Non-Tender Skin: No rashes noted on visualized skin Musculoskeletal: No Chest Wall Tenderness Extremities: No Clubbing, No Cyanosis, Normal Pulses, Other (+1 pitting edema bilateral LE) Results 07/21/17 04:12 07/21/17 04:12 Lab Results Laboratory Tests 07/20/17 07/20/17 07/21/17 17:25 17:25 02:46 INR 1.1 Potassium Magnesium AST ALT Troponin I 0.02 0.01 07/21/17 07/21/17 04:12 07:48 INR Potassium 3.2 L Magnesium 1.8 AST 22 ALT 42 Troponin I 0.01 ITS Impressions Chest X-Ray 07/20/17 16:38 IMPRESSION: No acute cardiopulmonary disease. D/ / Jamey Kuo MD / Jamey Kuo MD Interpreting Provider: Jamey Kuo MD Chest CTA 07/20/17 18:18 IMPRESSION: No evidence of pulmonary embolism or acute pulmonary abnormality. Triangular density anterior to the right major fissure centered on axial image 43. This is indeterminate may represent a small focus of atelectasis or scarring, however a developing pulmonary nodule would be difficult to exclude. This measures approximately 4.8 mm. RECOMMENDATIONS: Fleischner Society guidelines for follow-up and management of incidentally detected pulmonary nodules: Single Solid Nodule: Nodule size less than 6 mm In a low-risk patient, no routine follow-up. In a high-risk patient, optional CT at 12 months. Nodule size equals 6-8 mm In a low-risk patient, CT at 6-12 months, then consider CT at 18-24 months. In a high-risk patient, CT at 6-12 months, then CT at 18-24 months. Nodule size greater than 8 mm In a low-risk patient, consider CT, PET/CT, or tissue sampling at 3 months. In a high-risk patient, consider CT, PET/CT, or tissue sampling at 3 months. Multiple Solid Nodules: Nodule size less than 6 mm In a low-risk patient, no routine follow-up. In a high-risk patient, optional CT at 12 months. Nodule size equals 6-8 mm In a low-risk patient, CT at 3-6 months, then consider CT at 18-24 months. In a high-risk patient, CT at 3-6 months, then CT at 18-24 months. Nodule size greater than 8 mm In a low-risk patient, CT at 3-6 months, then consider CT at 18-24 months. In a high-risk patient, CT at 3-6 months, then CT at 18-24 months. - Low risk patients include individuals with minimal or absent history of smoking and other known risk factors. - High risk patients include individuals with a history or smoking or known risk factors. Radiology 2017 http://pubs.rsna.org/doi/full/10.1148/radiol.6110649367 D/ / Tanner Streeter / Tanner Streeter Interpreting Provider: Tanner Streeter Active Medications Acetaminophen (Tylenol) 650 mg PO Q6HR PRN PRN Reason: Mild Pain (1-3) Stop: 01/20/18 01:19 Albuterol Sulfate (Albuterol Inhaler) 2 puff IH QID PRN PRN Reason: Shortness Of Breath Stop: 01/20/18 01:28 Aspirin (Aspirin Ec) 81 mg PO DAILY REPLACED BY [facility] Stop: 01/20/18 09:01 Last Admin: 07/21/17 09:47 Dose: 81 mg Budesonide/Formoterol Fumarate (Symbicort) 2 puff IH BIDR REPLACED BY [facility] PRN Reason: Protocol Stop: 01/20/18 10:01 Last Admin: 07/21/17 08:14 Dose: 2 puff Carvedilol (Coreg) 6.25 mg PO BIDWM JASMIN PRN Reason: Protocol Stop: 01/20/18 08:01 Last Admin: 07/21/17 09:47 Dose: 6.25 mg Dextrose/Water (Dextrose 50% (Syg)) 25 ml IVP AD PRN PRN Reason: Hypoglycemia Stop: 01/20/18 01:27 Glucagon (Glucagen) 1 mg IM ONCE PRN PRN Reason: Hypoglycemia Stop: 01/20/18 01:27 Glucose (Gluctose) 15 gm PO ONCE PRN PRN Reason: Hypoglycemia Stop: 01/20/18 01:27 Glucose (Gluctose) 30 gm PO ONCE PRN PRN Reason: Hypoglycemia Stop: 01/20/18 01:27 Dextrose (Dextrose 5%) 1,000 mls @ 100 mls/hr IVC .Q10H PRN PRN Reason: HYPOGLYCEMIA Stop: 01/20/18 01:27 Insulin Human Lispro (Humalog) 0 units SQ Q6HR JASMIN PRN Reason: Protocol Stop: 01/20/18 06:01 Last Admin: 07/21/17 05:49 Dose: Not Given Isosorbide Mononitrate (Imdur) 60 mg PO DAILY REPLACED BY [facility] Stop: 01/20/18 09:46 Last Admin: 07/21/17 09:56 Dose: 60 mg Levothyroxine Sodium (Synthroid) 25 mcg PO 629 REPLACED BY [facility] Stop: 01/20/18 06:31 Last Admin: 07/21/17 05:49 Dose: 25 mcg Losartan Potassium (Cozaar) 50 mg PO DAILY REPLACED BY [facility] Stop: 01/20/18 09:01 Last Admin: 07/21/17 09:48 Dose: 50 mg Montelukast Sodium (Singulair) 10 mg PO QPM REPLACED BY [facility] Stop: 01/20/18 18:01 Morphine Sulfate (Morphine Sulfate) 2 mg IVP Q4HR PRN PRN Reason: Severe Pain (7-10) Stop: 01/20/18 01:19 Naloxone HCl (Narcan) 0.4 mg IVP Q2MIN PRN PRN Reason: Opioid Reversal Stop: 01/20/18 01:19 Nitroglycerin (Nitroglycerin) 1 spray TL DAILY PRN PRN Reason: CHEST PAIN Stop: 01/20/18 09:01 Omeprazole (Prilosec) 20 mg PO 30 REPLACED BY [facility] Stop: 01/20/18 06:31 Last Admin: 07/21/17 05:49 Dose: 20 mg Polyethylene Glycol (Miralax) 17 gm PO BID PRN PRN Reason: Constipation Stop: 01/20/18 01:28 Promethazine HCl (Phenergan) 12.5 mg IVP Q6HR PRN PRN Reason: Nausea And Vomiting Stop: 01/20/18 01:19 Simethicone (Gas-X) 160 mg PO BID PRN PRN Reason: Gas Simvastatin (Zocor) 20 mg PO HS REPLACED BY [facility] Stop: 01/20/18 21:01 Vitamin D (Vitamin D) 1,000 unit PO DAILY JASMIN Stop: 01/20/18 09:01 Last Admin: 07/21/17 09:47 Dose: 1,000 unit Consult Discharge Plan - Plan Referrals: Betsy Spencer, DOCUMENT ADVISOR [Primary Care Provider] - <Edy Fernandez - Last Filed: 07/22/17 12:39> Date of Encounter: 07/22/17 - Attending Attestation I have personally performed a face to face evaluation on this patient. I have reviewed and agree with the care plan. History and Exam by me shows: 51 YOM with atypical chest pain and recent 04/2017 [facility] with non obstructive CAD ( small vessel disease in the distal CIRC) presents with negative cardiac markers and unchanged EKG. Agree with DC and follow up with cardiology as an OP Assessment and Plan Discussion w patient/family: The assessment and plan as outlined above was discussed with the patient and/or family members who expressed understanding and agreement. All questions were answered. Thank you for involving us in the care of your patient. Please call with any questions. History of Present Illness History of present illness: Mr. West is a 51 year old male All Systems Review: A 10-system review of systems was performed and is negative for pertinent findings except as documented above in the HPI. Physical Examination Vital Signs, Last 4 Hours Temp Pulse Resp BP Pulse Ox 07/22/17 10:57 97.7 F 83 16 101/63 91 Results 07/22/17 05:57 07/22/17 05:57 Lab Results 07/22/17 07/22/17 05:57 05:57 WBC 7.9 Hgb 13.5 Hct 43.5 Plt Count 300 Sodium 136 Potassium 3.9 Chloride 102 Carbon Dioxide 21 BUN 9 Creatinine 0.78 Glucose 144 H Calcium 8.9 Magnesium 2.2
--- NOTE | 2017-07-21 12:32 | Event Note ---
Date of Encounter: 07/21/17 Time of Encounter: 12:32 Patient seen and examined at bedside. Admitted for chest pain with EKG changes. Cardiology evaluation appreciated. medical optimization recommended. Increased Imdur dose Currently chest pain free Reports of having history of COPD/MO and used bipap at bedtime He has remained O2 dependent since hospitalization and reports of having difficulty breathing at baseline. Will obtain 6minute walk test for home O2 qualification Will resume home meds Hypokalemia noted: K supplemented, will monitor electrolytes and replace as needed Likely d/c in am if remains clinically stable.
[2017-07-21] MEDS ORDERED: Insulin LISPRO 300 UNITS/3 ML VIAL SQ SCH (21:00)
[2017-07-22] MEDS: Levothyroxine 25 MCG TABLET PO SCH (05:22)
[2017-07-22 06:42] LABS: Basophils # 0.1 K/mcL (0.0-0.2); Basophils % 0.6 %; Eosinophils # 0.3 K/mcL (0.0-0.6); Eosinophils % 3.4 %; Hematocrit 43.5 % (37.5-50.1); Hemoglobin 13.5 g/dL (12.9-16.9); Immature Granulocytes % 0.6 % (0-4); Lymphocytes # 1.8 K/mcL (0.6-4.6); Lymphocytes % 22.9 %; Mean Corpuscular Hemoglobin 26.2 pg (28.0-33.3); Mean Corpuscular Volume 84.3 fL (83.0-100.0); Mean Platelet Volume 9.4 fL (9.4-12.4); Monocytes # 0.8 K/mcL (0.0-1.3); Monocytes % 9.7 %; Neutrophils # 4.9 K/mcL (1.6-8.9); Platelet Count 300 K/mcL (140-400); Red Blood Count 5.16 M/mcL (4.19-5.50); Red Cell Distribution Width 15.5 % (11.5-14.5); Segmented Neutrophils % 62.8 %
[2017-07-22 06:53] LABS: BUN/Creatinine Ratio 12 (6-26); Blood Urea Nitrogen 9 mg/dL (8-26); Calcium 8.9 mg/dL (8.6-10.8); Carbon Dioxide 21 mEq/L (19-29); Chloride 102 mEq/L (98-109); Glucose 144 mg/dL (70-99); Magnesium 2.2 mg/dL (1.6-2.6); Osmolality,Calculated 283 (280-300); Phosphorous 3.6 mg/dL (2.3-4.7); Potassium 3.9 mEq/L (3.5-4.5); Sodium 136 mEq/L (136-145); eGFR For African Americans > 60 (> 60); eGFR For Non-African Americans > 60 (> 60)
[2017-07-22] MEDS: Budesonide/Formoterol 80/4.5 MDI IH SCH (07:24)
[2017-07-22] MEDS: Isosorbide MONOnitrate (24 HR) 60 MG TAB.ER.24H PO SCH (09:11)
[2017-07-22] MEDS: Aspirin Enteric Coated 81 MG Tablet PO SCH (09:11)
[2017-07-22] MEDS: Cholecalciferol (D-3) 1,000 UNIT TABLET PO SCH (09:11)
[2017-07-22] MEDS: Insulin LISPRO 300 UNITS/3 ML VIAL SQ SCH ×2 (09:12→12:22)
--- NOTE | 2017-07-22 14:06 | Discharge Summary ---
Date of Encounter: 07/22/17 Time of Encounter: 14:05 - Discharge Diagnosis (1) Chest pain Priority: Primary Status: Resolved Qualifiers: Chest pain type: chest pain due to myocardial ischemia Ischemic chest pain type: unstable angina pectoris Qualified Code(s): I20.0 - Unstable angina (2) Type 2 diabetes mellitus Priority: Secondary Status: Chronic Qualifiers: Diabetes mellitus complication status: without complication Diabetes mellitus longterm insulin use: without intermodal dispatcher use Qualified Code(s): E11.9 - Type 2 diabetes mellitus without complications (3) Extravasation injury of IV catheter site with other complication Priority: Secondary Status: Resolved Qualifiers: Encounter type: initial encounter Qualified Code(s): T82.898A - Other specified complication of vascular prosthetic devices, implants and grafts, initial encounter (4) DVT prophylaxis Priority: Secondary Status: Acute (5) CAD (coronary artery disease) Priority: Secondary Status: Chronic Qualifiers: Coronary Disease-Associated Artery/Lesion type: andreafski artery [place] vs. transplanted heart: andreafski heart Associated angina: without angina Qualified Code(s): I25.10 - Atherosclerotic heart disease of andreafski coronary artery without angina pectoris - Discharge Medications Prescriptions: Isosorbide MONOnitrate (24 HR) [Imdur] 60 mg PO DAILY #30 tab.er.24h Home Medications: Albuterol Sulfate [Ventolin Hfa] 2 puff IH QID PRN 04/21/17 [History] Aspirin [Lo-Dose Aspirin EC] 81 mg PO DAILY 04/21/17 [History] Carvedilol [Coreg] 6.25 mg PO BIDWM 04/21/17 [History] Ergocalciferol (VITAMIN D2) [Vitamin D2] 2,000 unit PO DAILY 04/21/17 [History] Furosemide [Lasix] 40 mg PO DAILY 04/21/17 [History] Glimepiride [Amaryl] 2 mg PO QAM 04/21/17 [History] Levothyroxine Sodium [Tirosint] 25 mcg PO DAILY 04/21/17 [History] Losartan Potassium [Cozaar] 50 mg PO DAILY 04/21/17 [History] Montelukast Sodium [Singulair] 10 mg PO DAILY 04/21/17 [History] Pantoprazole Sodium [Protonix] 40 mg PO DAILY 04/21/17 [History] Polyethylene Glycol 3350 [MiraLAX] 17 gm PO BID PRN 04/21/17 [History] Simethicone [Phazyme] 180 mg PO BID PRN 04/21/17 [History] Budesonide/Formoterol 80/4.5 [Symbicort 80/4.5] 2 puff IH BID 07/20/17 [History ] Diclofenac Sodium [Voltaren] 2 - 4 gm TP QID PRN 07/20/17 [History] Empagliflozin [Jardiance] 25 mg PO DAILY 07/20/17 [History] Lovastatin 40 mg PO HS 07/20/17 [History] Meclizine HCl [Verticalm] 25 mg PO DAILY PRN 07/20/17 [History] Metformin HCl [Glucophage] 1,000 mg PO BID 07/20/17 [History] Nitroglycerin [Nitrolingual] 1 spray TL DAILY 07/20/17 [History] Isosorbide MONOnitrate (24 HR) [Imdur] 60 mg PO DAILY #30 tab.er.24h 07/22/17 [ Rx] Allergies/Adverse Reactions: 3 Allergy/AdvReac Type Severity Reaction Status Date / Time No Known Allergies Allergy Unverified 03/17/17 09:00 Date of admission: 07/21/17 01:18 Primary care physician: Betsy Spencer CNP Consults: 07/21/17 01:25 Consult to Cardiology [CONS] Routine Comment: Consulting Provider: Constanza Motley Reason for Consult: unstable angina Call Completed: No Discharging clinician: Jane Swanson Anticipated date of discharge: 07/22/17 - Patient Status Disposition: Home, Self-Care Condition: Good Functional capacity at discharge: independent ambulation Overall status at discharge: patient is back to baseline - Discharge Instructions Follow Up With: Betsy Spencer CNP [Primary Care Provider] - Additional Instructions: Please follow up with your primary care physician within five days after your discharge from the hospital. Please follow up with cardiology within one week after your discharge from the hospital. Your home dose of Imdur has been increased to 60mg once a day. Resume all other medications as prescribed by your primary care physician. - Diet and Activity Activity: increase activity as tolerated Diet: low fat, low cholesterol, low salt diet Hospital course: Mr. West is a 51 year old male with PMH of CAD admitted for chest pain and sob. He was evaluated by cardiology and his home dose of Imdur was increased and no other intervention was recommended. Pt responded well to therapy. He initially required O2 support however did not qualify for home oxygen therapy and has been saturating well on room air. He is currently hemodynamically stable for discharge with follow up with PCP and cardiology. Patient demonstrates understanding of his diagnosis and agrees with the discharge care and plan. - Time Spent with Patient Total time spent providing and/or coordinating discharge services: Less than 30 minutes - Constitutional Vitals: Temp Pulse Resp BP Pulse Ox 97.7 F 83 16 101/63 91 07/22/17 10:57 07/22/17 10:57 07/22/17 10:57 07/22/17 10:57 07/22/17 10:57 General appearance: Present: cooperative, A&O X 3, morbidly obese, pleasant, no acute distress, answers questions appropriately - Head Head exam: Present: atraumatic, normocephalic - Eye Eye exam: Present: conjuntiva pink, sclera anicteric - Respiratory Respiratory exam: Present: CTAB. Absent: respiratory distress, wheezes - Cardiovascular Cardiovascular exam: Present: RRR, +S1, +S2. Absent: diastolic murmur, gallop, rubs, systolic murmur - GI/Abdominal GI/Abdominal exam: Present: normal bowel sounds, soft, no peritoneal signs. Absent: distended, tenderness - Extremities Exam Extremities exam: Present: warm, radial pulses palpable and symmetrical. Absent : calf tenderness - Neurological Exam Neurological exam: Present: alert, oriented X3 - VTE Reasons for not Prescribing Prophylaxis: Not indicated-Anticoagulated or INR therapeutic Documentation of Mechanical Device: Graduated compression elastic hosiery
[2017-07-22 14:53] VITALS: BP 136/76
--- NOTE | 2017-07-22 18:39 | Electrocardiograph Report ---
[place] [id number] Test Date: 2017-07-20 Pat Name: Angelo West Department: 102 Room: [id number] Gender: M Journeyman Pipefitter: Meena : 1965 Requested By: Kendrick Valdez Order Number: [id number] Reading MD: Zion Tejada DO Measurements Intervals [place] Rate: 103 P: 40 MD: 153 QRS: -32 QRSD: 88 T: 11 QT: 269 QTc: 329 Interpretive Statements SINUS TACHYCARDIA MARKED LEFT AXIS DEVIATION NONSPECIFIC ST-T CHANGES Electronically Signed On 07-22-2017 18:38:21 EST by Zion Tejada DO
== END 2017-07-22 17:19 | disposition home or self-care (01) | DRG 198 ==
LOC: EMEROO 16:23 → 2NENU 16:23 → SUATTDRO 07-21 01:18
PROVIDERS: ADMIT Pediatrics; ATTEND Internal Medicine

== ENCOUNTER 2017-10-28 06:17 | Inpatient (IN) ==
--- NOTE | 2017-10-25 22:35 | Discharge Summary ---
<Carlita Hayward - Last Filed: 10/25/17 22:29> Date of Encounter: 10/25/17 - Discharge Diagnosis (1) Arthritis of knee Priority: Primary Status: Acute (2) Status post total bilateral knee replacement Priority: Primary Status: Acute (3) HTN (hypertension) Priority: Secondary Status: Chronic Qualifiers: Hypertension type: essential hypertension Qualified Code(s): I10 - Essential (primary) hypertension (4) COPD (chronic obstructive pulmonary disease) Priority: Secondary Status: Chronic Qualifiers: COPD type: unspecified COPD Qualified Code(s): J44.9 - Chronic obstructive pulmonary disease, unspecified (5) Obesity Priority: Secondary Status: Chronic Qualifiers: Obesity type: due to excess calories Obesity classification: unspecified obesity classification Serious obesity comorbidity presence: unspecified whether serious comorbidity present Qualified Code(s): E66.09 - Other obesity due to excess calories (6) Type 2 diabetes mellitus Priority: Secondary Status: Chronic Qualifiers: Diabetes mellitus skilled nursing insulin use: unspecified watermaster insulin use status Diabetes mellitus complication status: with unspecified complications Qualified Code(s): E11.8 - Type 2 diabetes mellitus with unspecified complications (7) CAD (coronary artery disease) Priority: Secondary Status: Chronic Qualifiers: Coronary Disease-Associated Artery/Lesion type: [place] artery [place] vs. transplanted heart: [place] heart Associated angina: without angina Qualified Code(s): I25.10 - Atherosclerotic heart disease of [place] coronary artery without angina pectoris - Hospital Course Hospital course: Mr. West is a 52 year old male - Time Spent with Patient Total time spent providing and/or coordinating discharge services: - Discharge Medications Home Medications: Albuterol Sulfate [Ventolin Hfa] 2 puff IH QID PRN 04/21/17 [History] Carvedilol [Coreg] 6.25 mg PO BIDWM 04/21/17 [History] Ergocalciferol (VITAMIN D2) [Vitamin D2] 2,000 unit PO DAILY 04/21/17 [History] Furosemide [Lasix] 40 mg PO DAILY 04/21/17 [History] Glimepiride [Amaryl] 2 mg PO QAM 04/21/17 [History] Levothyroxine Sodium [Tirosint] 25 mcg PO DAILY 04/21/17 [History] Losartan Potassium [Cozaar] 50 mg PO DAILY 04/21/17 [History] Pantoprazole Sodium [Protonix] 40 mg PO DAILY 04/21/17 [History] Polyethylene Glycol 3350 [MiraLAX] 17 gm PO BID PRN 04/21/17 [History] Empagliflozin [Jardiance] 25 mg PO DAILY 07/20/17 [History] Lovastatin 40 mg PO HS 07/20/17 [History] Meclizine HCl [Verticalm] 25 mg PO DAILY PRN 07/20/17 [History] Metformin HCl [Glucophage] 1,000 mg PO BID 07/20/17 [History] Nitroglycerin [Nitrolingual] 1 spray TL DAILY 07/20/17 [History] Isosorbide MONOnitrate (24 HR) [Imdur] 60 mg PO DAILY #30 tab.er.24h 07/22/17 [ Rx] Aspirin Enteric Coated [Aspirin EC] 325 mg PO BID #20 tablet.dr 10/25/17 [Rx] OxyCODONE Immed Rel [Roxicodone 5 MG] 5 mg PO Q6HR PRN 7 Days #28 tablet [Rx] Aspirin 81 mg PO DAILY 10/28/17 [History] Fluticasone/Vilanterol [Breo Ellipta 200-25 Mcg INH] 1 puff IH DAILY 10/28/17 [ History] Tiotropium [place] [Spiriva Respimat] 2 puff IH DAILY 10/28/17 [History] Allergies/Adverse Reactions: 3 Allergy/AdvReac Type Severity Reaction Status Date / Time No Known Allergies Allergy Verified 10/28/17 06:48 Primary care physician: Betsy Spencer CNP - Patient Status Disposition: Transfer Inpatient Rehab Fac Condition: Good - Discharge Instructions Follow Up With: Betsy Spencer CNP [Primary Care Provider] - <Marty Devi - Last Filed: 10/30/17 08:16> Orders not resulted at time of discharge: Pending orders 10/28/17 00:01 XR knee LT limited 1-2V [XR] Routine XR knee RT limited 1-2V [XR] Routine Date of Encounter: 10/30/17 Time of Encounter: 08:15 - Discharge Diagnosis (1) Morbid obesity with BMI of 40.0-44.9, adult Priority: Secondary Status: Chronic (2) Type 2 diabetes mellitus Priority: Secondary Status: Chronic Qualifiers: Diabetes mellitus watermaster insulin use: unspecified watermaster insulin use status Diabetes mellitus complication status: with unspecified complications Qualified Code(s): E11.8 - Type 2 diabetes mellitus with unspecified complications (3) CAD (coronary artery disease) Priority: Secondary Status: Chronic Qualifiers: Coronary Disease-Associated Artery/Lesion type: [place] artery [place] vs. transplanted heart: [place] heart Associated angina: without angina Qualified Code(s): I25.10 - Atherosclerotic heart disease of [place] coronary artery without angina pectoris (4) Arthritis of knee Priority: Primary Status: Chronic (5) Status post total bilateral knee replacement Priority: Primary Status: Acute (6) HTN (hypertension) Priority: Secondary Status: Chronic Qualifiers: Hypertension type: essential hypertension Qualified Code(s): I10 - Essential (primary) hypertension (7) COPD (chronic obstructive pulmonary disease) Priority: Secondary Status: Chronic Qualifiers: COPD type: unspecified COPD Qualified Code(s): J44.9 - Chronic obstructive pulmonary disease, unspecified (8) Acute blood loss anemia Priority: Primary Status: Acute - Hospital Course Hospital course: Mr. West is a 52 year old male Status post bilateral total knee replacements patient with Tenderness on the left side will obtain Dopplers before discharge. Otherwise patient uneventful postoperative course received antibiotics physical therapy discharge stable condition. - Time Spent with Patient Total time spent providing and/or coordinating discharge services: Primary care physician: Betsy Spencer CNP - Patient Status Functional capacity at discharge: uses cane/walker Overall status at discharge: patient is progressing back to baseline
--- NOTE | 2017-10-28 06:26 | History & Physical Report ---
Date of Encounter: 10/28/17 Time of Encounter: 06:26 24 Hour HP Update - Instructions Instructions: If the History and Physical is less than 30 days old and was completed prior to A.M. admission and or procedure and has NOT been updated on calendar day of procedure please complete this update prior to performing procedure. - Update Patient reports changes in Medical Condition: No Changes in examination, assessment, or condition: No Changes in Medication: No Preop tests/diagnostics Reviewed: Yes Surgery Remains Indicated: Yes Consent for Planned Operative Procedure(s) Verified: Yes - Pre-Operative Checklist Preoperative Checklist Indicated: No Prophylactic Antibiotic Ordered: Yes Is VTE Prophylaxis Indicated?: Yes
[2017-10-28] MEDS ORDERED: CeFAZolin Syr 3,000MG/30 ML 3,000 MG/30 ML SYRINGE IVPB ONE (06:35)
[2017-10-28] MEDS ORDERED: Ringers Solution, Lactated 1,000 ML IVC SCH ×2 (06:45→11:44)
[2017-10-28] MEDS ORDERED: Famotidine 20 MG/2 ML VIAL IVP ONE (07:07)
[2017-10-28] MEDS ORDERED: Pregabalin 75 MG CAPSULE PO ONE (07:07)
--- NOTE | 2017-10-28 07:22 | Anesthesia Evaluation PreOp ---
Date of Encounter: 10/28/17 Time of Encounter: 07:20 - Past History Planned Operation: Bilateral TKA Cardiac History: HTN, Hyperlipidemia, Other (CAD) Pulmonary History: COPD, [place] Dx (BiPaP) UNIT SUPERVISOR History: Denies Any Significant HX Other Medical History: Diabetes Type II (Accu check 169), Thyroid, Other ( Morbid Obesity) Anesthesia History: No Prior Anesthetic Complications Alcohol Use: none Drug use: none Medications and Allergies Albuterol Sulfate [Ventolin Hfa] 2 puff IH QID PRN 04/21/17 [History] Carvedilol [Coreg] 6.25 mg PO BIDWM 04/21/17 [History] Ergocalciferol (VITAMIN D2) [Vitamin D2] 2,000 unit PO DAILY 04/21/17 [History] Furosemide [Lasix] 40 mg PO DAILY 04/21/17 [History] Glimepiride [Amaryl] 2 mg PO QAM 04/21/17 [History] Levothyroxine Sodium [Tirosint] 25 mcg PO DAILY 04/21/17 [History] Losartan Potassium [Cozaar] 50 mg PO DAILY 04/21/17 [History] Pantoprazole Sodium [Protonix] 40 mg PO DAILY 04/21/17 [History] Polyethylene Glycol 3350 [MiraLAX] 17 gm PO BID PRN 04/21/17 [History] Empagliflozin [Jardiance] 25 mg PO DAILY 07/20/17 [History] Lovastatin 40 mg PO HS 07/20/17 [History] Meclizine HCl [Verticalm] 25 mg PO DAILY PRN 07/20/17 [History] Metformin HCl [Glucophage] 1,000 mg PO BID 07/20/17 [History] Nitroglycerin [Nitrolingual] 1 spray TL DAILY 07/20/17 [History] Isosorbide MONOnitrate (24 HR) [Imdur] 60 mg PO DAILY #30 tab.er.24h 07/22/17 [ Rx] Aspirin Enteric Coated [Aspirin EC] 325 mg PO BID #20 tablet.dr 10/25/17 [Rx] OxyCODONE Immed Rel [Roxicodone 5 MG] 5 mg PO Q6HR PRN 7 Days #28 tablet [Rx] Aspirin 81 mg PO DAILY 10/28/17 [History] Fluticasone/Vilanterol [Breo Ellipta 200-25 Mcg INH] 1 puff IH DAILY 10/28/17 [ History] Tiotropium [place] [Spiriva Respimat] 2 puff IH DAILY 10/28/17 [History] 3 Allergy/AdvReac Type Severity Reaction Status Date / Time No Known Allergies Allergy Verified 10/28/17 06:48 - Meds/Allergy Pre-op Review Medications Reviewed: Yes Allergies Reviewed: Yes Beta Blockers on Current Med List: Yes (Coreg today 0400) Anesthesia Results - Labs Laboratory Tests 10/12/17 10/12/17 10/12/17 15:40 15:40 15:40 Hgb 15.4 Hct 47.6 Plt Count 353 PT 10.4 INR 1.0 APTT 31.1 Sodium 134 L Potassium 3.9 BUN 17 Creatinine 1.02 Hemoglobin A1c 10/12/17 15:40 Hgb Hct Plt Count PT INR APTT Sodium Potassium BUN Creatinine Hemoglobin A1c 8.4 H - Imaging EKG: report reviewed (Sinus Tach) Additional studies: Heart Cath EF 65%, CAD Anesthesia Exam O2 Sat Height 1.7 m Height 1.7 m Height 1.7 m Weight 122.924 kg Weight 122.924 kg Weight 122.924 kg O2 Sat by Pulse Oximetry 95 O2 Sat by Pulse Oximetry 95 Vital Signs Temp Pulse Resp BP Pulse Ox 98.2 F 81 18 143/79 95 10/28/17 06:38 10/28/17 06:38 10/28/17 06:38 10/28/17 06:38 10/28/17 06:38 Height: 5'6 Weight: 270 lbs NPO (# of Hours): MN Pain Scale: 0 - HEENT Pupil (Motor): Pupils equal, EOMI Mallampati: III Teeth: Normal Oral Opening: Less than or equal to 3 - UNIT SUPERVISOR LOC: Oriented UNIT SUPERVISOR Motor: Normal RUE, Normal LUE, Normal RLE, Normal LLE, Normal Face UNIT SUPERVISOR Sensory: Normal: RUE, LUE, RLE, LLE, Face - Cardiac Rhythm: Regular Murmur: None JVD: No Carotid Bruit: No - Pulmonary Breath Sounds: bilateral Clear Respiratory Effort: Symmetrical Anesthesia Assess/Plan ASA Score: 3 (HTN CAD MO COPD DM MO) Modified [place] Scale for Level of Consciousness: Cooperative, oriented, and tranquil Anesthetic Plan: General, Regional Monitoring Plan: Standard Monitors Recovery Plan: PACU (Discussed RA, possible GA, Adductor Canal Blocks, agrees to proceed)
[2017-10-28] MEDS ORDERED: Ethanol\\Acetic Acid\\Na Ace\\Ben 1,000 ML IRRIG.SOLN IR ONE (07:42)
[2017-10-28] MEDS ORDERED: *HR* Morphine Sulfate/PF 10 MG/10 ML AMPUL ONE (07:54)
[2017-10-28] MEDS ORDERED: ROPIVACAINE HCL/PF 0.5% 30 ML VIAL ONE (07:55)
[2017-10-28] MEDS ORDERED: Dexmedetomidine HCl 200 MCG/50 ML MLS IVC ONE (07:55)
[2017-10-28] MEDS ORDERED: *HR* OxyCODONE/APAP 5/325 TABLET PO PRN (08:25)
[2017-10-28] MEDS ORDERED: Naloxone 0.4 MG/ML INJ IVP PRN ×2 (08:25→11:44)
[2017-10-28] MEDS ORDERED: Ondansetron 4 MG/2 ML VIAL IVP PRN ×2 (08:25→11:44)
[2017-10-28] MEDS ORDERED: *HR* PHENYLEPHRINE 1,000 MCG/10 ML SYRINGE IVP ONE (08:37)
--- NOTE | 2017-10-28 08:45 | Anesthesia Procedures ---
Date of Encounter: 10/28/17 Time of Encounter: 07:20 Procedures: Anesthesia - Epidural/Spinal Patient ID/Chart reviewed: Yes Patient examined: Yes Supplemental Oxygen: Nasal Cannula (2) Sedation: Versed (mg): 2 Patient position: upright Local Anesthetic: Lidocaine 1% Interspace Used: L4-L5 Spinal Needle Gauge: 22 Spinal Dose: 1 mg isobaric marcaine Procedure: Patient sitting, monitors placed sterile P&D midline L4-5 plus CSF Vitals + FHT's: O2 Sat Height 1.7 m Height 1.7 m Height 1.7 m Weight 122.924 kg Weight 122.924 kg Weight 122.924 kg O2 Sat by Pulse Oximetry 97 O2 Sat by Pulse Oximetry 96 O2 Sat by Pulse Oximetry 96 O2 Sat by Pulse Oximetry 97 O2 Sat by Pulse Oximetry 95 O2 Sat by Pulse Oximetry 95 Vital Signs Temp Pulse Resp BP Pulse Ox 98.2 F 81 18 143/79 95 10/28/17 06:38 10/28/17 06:38 10/28/17 06:38 10/28/17 06:38 10/28/17 06:38
--- NOTE | 2017-10-28 08:48 | Anesthesia Procedures ---
Date of Encounter: 10/28/17 Time of Encounter: 07:20 Procedures: Anesthesia - Nerve Block Procedure Date: 10/28/17 Time: 07:45 Pre-op Diagnosis: Bilateral Knee Osteoarthritis Surgical Procedure: Bilat TKA Checklist: Correct Patient Identifier Blood Thinner: No Monitor Applied: EKG, BP, Pulse Oximetry Supplemental Oxygen via Nasal Cannula (L/min): 2 Sedation: Versed (mg): 2 Indication: Post Op Analgesia Pre-op Neuro Deficits: No Block Type: Other (Adductor Canal Blocks Bilateral) Catheter placed: No Depth at skin (cm): 4 Sterile Technique: Yes Ultrasound used: Yes Anatomy identified: Yes Visual spread of Local: Yes Neuro Stimulation: No Blood on Needle Aspiration: No Smooth Injection of Local: Yes Pain with Injection of Local: No Prep: Chlorhexadine Needle: 21 x 100 mm Stimuplex Local: Ropivacaine (0.5%), Other (Precedex 100 micrograms) Volume (cc): 30cc Ropiv, 25cc Precedex Number of Attempts: 1 Complications: None/effective block Vitals: Vital Signs/O2 Sat/Glucose, Most Current Temp Pulse Resp BP Pulse Ox 10/28/17 08:16 81 18 141/90 97 10/28/17 08:13 81 18 146/84 96 10/28/17 08:03 80 18 154/93 96 10/28/17 07:52 89 18 130/120 97 10/28/17 06:42 98.2 F 81 18 143/79 95 10/28/17 06:38 98.2 F 81 18 143/79 95
[2017-10-28] MEDS ORDERED: Propofol 500 MG/50 ML INFUS..BTL ONE (09:02)
[2017-10-28] MEDS ORDERED: *HR* Propofol 200 MG/20 ML VIAL IVP ONE (09:02)
[2017-10-28] MEDS ORDERED: Lidocaine -MPF 2% 2 ML VIAL ONE (09:02)
[2017-10-28] MEDS ORDERED: *HR* Midazolam HCl 2 MG/2 ML VIAL ONE (09:02)
[2017-10-28] MEDS ORDERED: *HR* FentaNYL (PF) 100 MCG/2 ML VIAL ONE (09:02)
[2017-10-28] MEDS ORDERED: *HR* Phenylephrine 10 MG/ML VIAL ONE (09:08)
[2017-10-28] MEDS ORDERED: Ketamine *HR* 500 MG/10 ML MDV ONE (09:26)
[2017-10-28] MEDS ORDERED: Ondansetron 4 MG/2 ML VIAL ONE (09:53)
--- NOTE | 2017-10-28 10:17 | Orthopedic Operative Note ---
Date of procedure: 10/28/17 Pre-op diagnosis: Bilateral knee arthritis Post-op diagnosis: same Procedure: Procedure: Bilateral robotic-assisted Total knee replacement Estimated blood loss: 400 cc Hardware: Metal and polyethylene replacement. Merlin Femur:3 Tibia:3 TS insert: 9 Patella: 36 Exam Under anesthesia: Left knee 8 degrees flexion contracture 17 degree varus, right knee 16 degree flexion contracture 14 degree varus as calculated by the robot full flexion and no instability Procedural Notes: Grade 4 arthritic changes all 3 compartments. Operative procedure: The patient was brought to the operating room and placed on the operating room table. After general anesthesia was administered the operative knee was examined. Findings were noted in the exam under anesthesia. The operative extremity was prepped and draped in sterile surgical fashion. The patient received IV antibiotics prior to skin incision. The following will be a dictation for both these any differences will be highlighted. A standard midline incision was made centered over the patella. The incision was made through the skin and subcutaneous tissue. A medial parapatellar tendon approach was performed. Care was taken to preserve tissue along the medial aspect of the patella. And to protect the patella tendon. The deep MCL was released off the medial tibia. The infra patella fat pad was excised. The patella was everted and cut was made at the level of the insertion of the quadriceps and patella tendon. The patella was sized to a 36 bilateral the guide was seated and the lug holes are drilled. Knee was brought into flexion. Patient noted to have Steinmann pins were placed in the tibia and the femur for the tibial and femoral arrays respectively. Checkpoints were also placed in the tibia and the femur for calculation purposes. The knee including the femur and the tibial registered. Osteophytes, ACL and PCL were excised at this point. Extension and flexion were assessed with a valgus stress components were adjusted on the computer to balance the knee. Femoral cuts were made first with robotic assistance, these included the anterior cut posterior cuts chamfer cuts. Tibial cut was then performed with robotic assistance as well. Bone fragments were removed, as well as the medial and lateral meniscus. The size 3 bilateral femoral guide was seated box cut was made lug holes are drilled. The size 3 bilateral tibial tray was seated and prepared with the fin cutter. Trial reduction with the 9 TS Kena bilateral revealed extension of 0 degree and 10 degree varus bilateral and full flexion. No varus valgus instability. Trial reduction revealed excellent patella tracking. All trial components were removed all bony surfaces were irrigated. The Tibia was seated followed by the femur, The Kena size 9 was seated and secured patella. Patient had similar findings for motion and stability. The knee was closed by the PA. The knee was then irrigated out with 2 L of pulse irrigation. The extensor mechanism was closed with #2 FiberWire suture and #2 PDS suture. The subcutaneous tissue was then irrigated and closed deep with #1 PDS suture superficially with 0 PDS suture and skin was closed with zip tie The patient was then placed in a sterile dressing and a postoperative brace extubated and transferred to recovery room in stable condition. Anesthesia: spinal Surgeon: Marty Devi Was there an medical office assistant instructor present: Yes Behavioral Health Case Manager: Carlita Hayward Estimated blood loss (cc): 400 Condition: stable Disposition: PACU
[2017-10-28] MEDS ORDERED: Albuterol 2.5 MG/3 ML NEBULIZER IH ONE (10:47)
--- NOTE | 2017-10-28 11:16 | Anesthesia Evaluation Post Op ---
Date of Encounter: 10/28/17 Time of Encounter: 11:15 - Vital Signs Vital Signs: Vital Signs/O2 Sat/Glucose, Most Current Temp Pulse Resp BP Pulse Ox 10/28/17 11:11 98.0 F 71 16 98/51 93 10/28/17 11:01 76 16 108/54 93 10/28/17 10:51 72 16 85/56 94 10/28/17 10:41 97.0 F L 85 16 83/63 95 10/28/17 08:16 81 18 141/90 97 10/28/17 08:13 81 18 146/84 96 10/28/17 08:03 80 18 154/93 96 10/28/17 07:52 89 18 130/120 97 - Lungs Lungs: Clear Ascult./Percussion - Airway Airway: Non-obstructed - Cardiovascular Regular Rate - Mental Status Mental Status: Alert & Oriented, Answers Appropriately - Pain Pain Scale: 0 - Nausea Vomiting Nausea Vomiting: Not Present - Hydration Hydration: Ice chips - Discharge PostOp Status: Transfer Patient to floor
[2017-10-28 11:33] LABS: Hematocrit 39.7 % (37.5-50.1); Hemoglobin 12.4 g/dL (12.9-16.9)
[2017-10-28] MEDS ORDERED: MOM Conc 10 ML UD.LIQ PO PRN (11:44)
[2017-10-28] MEDS ORDERED: Sennosides 8.6 MG TABLET PO PRN (11:44)
[2017-10-28] MEDS ORDERED: Temazepam 15 MG CAPSULE PO PRN (11:44)
[2017-10-28] MEDS ORDERED: CeFAZolin Syr 3,000MG/30 ML 3,000 MG/30 ML SYRINGE IVPB SCH (11:44)
[2017-10-28] MEDS ORDERED: *HR* OxyCODONE Immed Rel 5 MG TABLET PO PRN (11:44)
[2017-10-28] MEDS ORDERED: Nitroglycerin Spray 4.9 GM BOTTLE TL PRN (11:44)
[2017-10-28] MEDS ORDERED: *HR* Dextrose 50 % in Water (Syg) 50 ML SYRINGE IVP PRN (11:44)
[2017-10-28] MEDS ORDERED: Dextrose Gel 15 GM/37.5 ML TUBE PO PRN ×2 (11:44)
[2017-10-28] MEDS ORDERED: D5% in Water 1,000 ML IVC PRN (11:44)
[2017-10-28] MEDS: Insulin LISPRO 300 UNITS/3 ML VIAL SQ SCH ×3 (12:37→21:43)
[2017-10-28] MEDS: Furosemide 40 MG TABLET PO SCH (12:44)
[2017-10-28] MEDS: Isosorbide MONOnitrate (24 HR) 60 MG TAB.ER.24H PO SCH (12:44)
[2017-10-28] MEDS: Levothyroxine 25 MCG TABLET PO SCH (12:45)
[2017-10-28] MEDS: Aspirin 81 MG TAB.CHEW PO SCH (12:46)
[2017-10-28] MEDS: *HR* Metformin 500 MG TABLET PO SCH ×2 (12:46→17:15)
[2017-10-28] MEDS: *HR* Glimepiride 2 MG TABLET PO SCH (12:46)
[2017-10-28] MEDS: Cholecalciferol (D-3) 1,000 UNIT TABLET PO SCH (12:46)
[2017-10-28] MEDS: (Fluticasone/Vilanterol [Breo Ellipta 200-25 Mcg Inh] IH SCH (12:48)
[2017-10-28] MEDS: (Empagliflozin [Jardiance] 25 MG) PO SCH (12:48)
[2017-10-28] MEDS: Tiotropium 18 MCG inhalation IH SCH (15:18)
--- NOTE | 2017-10-28 16:23 | Physician Discharge Referral ---
ExtendedCare Referral Info Transfer To: [facility] Provider in Charge: Provider in Charge after Transfer: PCP Institutional Level of Care: Skilled - Diagnosis (1) Arthritis of knee Priority: Primary Status: Chronic (2) Status post total bilateral knee replacement Priority: Primary Status: Acute (3) HTN (hypertension) Status: Chronic (4) COPD (chronic obstructive pulmonary disease) Status: Chronic (5) Obesity Status: Chronic (6) Type 2 diabetes mellitus Status: Chronic (7) CAD (coronary artery disease) Status: Chronic - Transfer Medications Home Medications: Albuterol Sulfate [Ventolin Hfa] 2 puff IH QID PRN 04/21/17 [History] Carvedilol [Coreg] 6.25 mg PO BIDWM 04/21/17 [History] Ergocalciferol (VITAMIN D2) [Vitamin D2] 2,000 unit PO DAILY 04/21/17 [History] Furosemide [Lasix] 40 mg PO DAILY 04/21/17 [History] Glimepiride [Amaryl] 2 mg PO QAM 04/21/17 [History] Levothyroxine Sodium [Tirosint] 25 mcg PO DAILY 04/21/17 [History] Losartan Potassium [Cozaar] 50 mg PO DAILY 04/21/17 [History] Pantoprazole Sodium [Protonix] 40 mg PO DAILY 04/21/17 [History] Polyethylene Glycol 3350 [MiraLAX] 17 gm PO BID PRN 04/21/17 [History] Empagliflozin [Jardiance] 25 mg PO DAILY 07/20/17 [History] Lovastatin 40 mg PO HS 07/20/17 [History] Meclizine HCl [Verticalm] 25 mg PO DAILY PRN 07/20/17 [History] Metformin HCl [Glucophage] 1,000 mg PO BID 07/20/17 [History] Nitroglycerin [Nitrolingual] 1 spray TL DAILY 07/20/17 [History] Isosorbide MONOnitrate (24 HR) [Imdur] 60 mg PO DAILY #30 tab.er.24h 07/22/17 [ Rx] Aspirin Enteric Coated [Aspirin EC] 325 mg PO BID #20 tablet. 10/25/17 [Rx] OxyCODONE Immed Rel [Roxicodone 5 MG] 5 mg PO Q6HR PRN 7 Days #28 tablet [Rx] Aspirin 81 mg PO DAILY 10/28/17 [History] Fluticasone/Vilanterol [Breo Ellipta 200-25 Mcg INH] 1 puff IH DAILY 10/28/17 [ History] Tiotropium [place] [Spiriva Respimat] 2 puff IH DAILY 10/28/17 [History] Allergies/Adverse Reactions: 3 Allergy/AdvReac Type Severity Reaction Status Date / Time No Known Allergies Allergy Verified 10/28/17 06:48 - Respiratory Orders Oxygen / L per min ([place] - Bipap machine - 2 LPM at night), None Smoking Cessation: Smoking cessation has been advised. For more information, call the [employer] Tobacco Quit Line at 5-450-RMLY-NOW. - Ancillary Orders May use pressure relief devices daily prn, May go on RUBY w/family/respon green party w /meds at nurse discretion PRN, May consult with Dentist, Pickling Drum Operator, Heat And Frost Insulator Helper PRN - Mobility Orders Chair, Ambulate - Rehabiliation Orders Rehab Potential: Good Rehab Orders: ROM Exercises, Evaluation for Physical Therapy, Evaluation for Occupational Therapy Other: Bilateral TKR Opsite dressing, leave intact until first post-operative visit. If dressing becomes >50% saturated, contact office, remove dressing and place appropriate dressing in its place. Do not allow for dressing to get wet. Zipline dressing in place, plan to remove at POD#14-16. PT: Total Joint Precautions x 6 weeks Apply ICE/cold therapy wrap 3-6x/day for 20 minutes at a time. Encourage ambulation throughout the day and incentive spirometer 10x/hour. Elevate affected extremity above heart as tolerated. Brace: Knee immobilizer at night until first post-operative appointment. CERTIFICATION: I certify that the transfer of the above named patient to an Extended Care Facility is necessary for the continuing treatment of the diagnosis listed. The above information is true and accurate reflection of patient's current condition. Confidential - Redisclosure prohibited without a patient's written consent.
[2017-10-28] MEDS: CeFAZolin Syr 3,000MG/30 ML 3,000 MG/30 ML SYRINGE IVPB SCH (17:13)
[2017-10-28] MEDS: *HR* Enoxaparin 30 MG/0.3 ML SYRINGE SQ SCH (17:15)
[2017-10-28] MEDS ORDERED: *HR* Enoxaparin 30 MG/0.3 ML SYRINGE SQ SCH (18:00)
[2017-10-29] MEDS: CeFAZolin Syr 3,000MG/30 ML 3,000 MG/30 ML SYRINGE IVPB SCH (01:45)
[2017-10-29] MEDS: *HR* Enoxaparin 30 MG/0.3 ML SYRINGE SQ SCH ×2 (05:43→16:45)
[2017-10-29] MEDS: *HR* OxyCODONE Immed Rel 5 MG TABLET PO PRN ×3 (05:45→13:50)
--- NOTE | 2017-10-29 05:59 | Orthopedics Progress Note ---
Date of Encounter: 10/29/17 Time of Encounter: 05:59 - Assessment and Plan (1) Morbid obesity with BMI of 40.0-44.9, adult Current Visit: Yes Status: Chronic (2) Type 2 diabetes mellitus Current Visit: No Status: Chronic Qualifiers: Diabetes mellitus continuous churn buttermaker insulin use: unspecified continuous churn buttermaker insulin use status Diabetes mellitus complication status: with unspecified complications Qualified Code(s): E11.8 - Type 2 diabetes mellitus with unspecified complications (3) CAD (coronary artery disease) Current Visit: No Status: Chronic Qualifiers: Coronary Disease-Associated Artery/Lesion type: [place] artery [place] vs. transplanted heart: [place] heart Associated angina: without angina Qualified Code(s): I25.10 - Atherosclerotic heart disease of [place] coronary artery without angina pectoris (4) Arthritis of knee Current Visit: No Status: Chronic (5) Status post total bilateral knee replacement Current Visit: No Status: Acute (6) HTN (hypertension) Current Visit: No Status: Chronic Qualifiers: Hypertension type: essential hypertension Qualified Code(s): I10 - Essential (primary) hypertension (7) COPD (chronic obstructive pulmonary disease) Current Visit: No Status: Chronic Qualifiers: COPD type: unspecified COPD Qualified Code(s): J44.9 - Chronic obstructive pulmonary disease, unspecified Subjective Interval history: Patient was seen this morning doing well without complaints. Afebrile vital signs stable. Bilateral Operative extremity: Neurovascularly intact Dressing clean dry and intact Calves nontender Assessment and plan: Continue with postoperative care Hematocrit 39 Objective Vital signs: Vital Signs Temp Pulse Resp BP Pulse Ox 10/29/17 04:56 99.1 F 103 18 136/83 94 10/29/17 04:22 16 94 10/28/17 23:23 98.3 F 99 18 119/76 96 10/28/17 22:50 20 92 10/28/17 19:30 97.9 F 99 18 103/58 93 10/28/17 14:07 98.1 F 77 16 112/75 92 10/28/17 12:49 97.6 F 72 16 111/74 92 10/28/17 12:29 97.9 F 66 16 108/73 92 10/28/17 11:21 98.0 F 64 16 105/47 94 10/28/17 11:11 98.0 F 71 16 98/51 93 10/28/17 11:01 76 16 108/54 93 10/28/17 10:51 72 16 85/56 94 10/28/17 10:41 97.0 F L 85 16 83/63 95 10/28/17 08:16 81 18 141/90 97 10/28/17 08:13 81 18 146/84 96 10/28/17 08:03 80 18 154/93 96 10/28/17 07:52 89 18 130/120 97 10/28/17 06:42 98.2 F 81 18 143/79 95 10/28/17 06:38 98.2 F 81 18 143/79 95 Intake and Output 10/28/17 10/28/17 10/29/17 15:59 23:59 07:59 Intake Total 1430 / 1430 600 / 600 Output Total 400 / 400 100 / 100 225 / 225 Balance -400 / -400 1330 / 1330 375 / 375 Intake: IV Fluids 30 / 30 Ancef Syringe 3,000 MG/30 ML 3, 30 / 30 000 mg In 30 ml @ 200 mls/hr IVPB Q8HR JASMIN Rx#:[id number] Oral 1400 / 1400 600 / 600 Output: Urine 100 / 100 225 / 225 Estimated Blood Loss 400 / 400 Other: # Voids 1 Blood Glucose* 152 212 - Labs CBC & BMP: 10/28/17 11:00 Labs: Abnormal lab results Hgb 12.4 g/dL (12.9-16.9) L 10/28/17 11:00 POC Glucose 169 (58-89) H 10/28/17 06:33 - VTE Documentation of Mechanical Device: Venous foot pump, device Consult Discharge Plan - Plan Referrals: Betsy Spencer, ESCALATOR SERVICE MECHANIC [Primary Care Provider] -
[2017-10-29 07:14] LABS: Hematocrit 34.8 % (37.5-50.1)
[2017-10-29 07:20] LABS: Hemoglobin 10.6 g/dL (12.9-16.9)
[2017-10-29] MEDS: Isosorbide MONOnitrate (24 HR) 60 MG TAB.ER.24H PO SCH (08:10)
[2017-10-29] MEDS: Aspirin 81 MG TAB.CHEW PO SCH (08:10)
[2017-10-29] MEDS: *HR* Glimepiride 2 MG TABLET PO SCH (08:10)
[2017-10-29] MEDS: Cholecalciferol (D-3) 1,000 UNIT TABLET PO SCH (08:10)
[2017-10-29] MEDS: Levothyroxine 25 MCG TABLET PO SCH (08:11)
[2017-10-29] MEDS: Insulin LISPRO 300 UNITS/3 ML VIAL SQ SCH ×4 (08:11→21:05)
[2017-10-29] MEDS: *HR* Metformin 500 MG TABLET PO SCH ×2 (08:11→16:46)
[2017-10-29] MEDS: Furosemide 40 MG TABLET PO SCH (08:11)
[2017-10-29] MEDS: (Fluticasone/Vilanterol [Breo Ellipta 200-25 Mcg Inh] IH SCH (08:12)
[2017-10-29] MEDS: (Empagliflozin [Jardiance] 25 MG) PO SCH (08:12)
[2017-10-29 09:40] LABS: BUN/Creatinine Ratio 15 (6-26); Blood Urea Nitrogen 17 mg/dL (6-20); Calcium 8.7 mg/dL (8.6-10.3); Carbon Dioxide 26 mEq/L (23-29); Chloride 98 mEq/L (98-107); Glucose 191 mg/dL (70-105); Osmolality,Calculated 279 (280-300); Potassium 4.4 mEq/L (3.5-5.1); Sodium 131 mEq/L (136-145); eGFR For African Americans > 60 (> 60); eGFR For Non-African Americans > 60 (> 60)
[2017-10-29] MEDS: Tiotropium 18 MCG inhalation IH SCH (11:31)
[2017-10-29] MEDS ORDERED: Acetaminophen 325 MG TABLET PO PRN (13:26)
--- NOTE | 2017-10-29 16:11 | Event Note ---
Date of Encounter: 10/29/17 Time of Encounter: 16:10 PCR - POD#1 Bilateral TKR - (PRP Left Knee). Patient seen at bedside. Doing well Labs reviewed. Pain control: Added Lidoderm patch Dressing to Right knee - changed and new one placed. Participating in PT. All questions and concerns addressed. Educated on use of incentive spirometer. Encouraged ambulation and proper hydration. Patient educated on post-operative restrictions and post-operative care. Addressed: DC ECF, contiuity placed Discharge plan: Bipap at night 2 L O2 LPM
[2017-10-30] MEDS: *HR* Enoxaparin 30 MG/0.3 ML SYRINGE SQ SCH ×2 (05:36→18:03)
[2017-10-30] MEDS: *HR* OxyCODONE Immed Rel 5 MG TABLET PO PRN ×3 (05:41→19:47)
[2017-10-30 06:25] LABS: Hemoglobin 9.3 g/dL (12.9-16.9)
[2017-10-30 06:40] LABS: BUN/Creatinine Ratio 16 (6-26); Blood Urea Nitrogen 16 mg/dL (6-20); Calcium 8.7 mg/dL (8.6-10.3); Carbon Dioxide 27 mEq/L (23-29); Chloride 94 mEq/L (98-107); Glucose 161 mg/dL (70-105); Osmolality,Calculated 277 (280-300); Potassium 4.3 mEq/L (3.5-5.1); Sodium 131 mEq/L (136-145); eGFR For African Americans > 60 (> 60); eGFR For Non-African Americans > 60 (> 60)
--- NOTE | 2017-10-30 08:17 | Orthopedics Progress Note ---
Date of Encounter: 10/30/17 Time of Encounter: 08:16 - Assessment and Plan (1) Morbid obesity with BMI of 40.0-44.9, adult Current Visit: Yes Status: Chronic (2) Type 2 diabetes mellitus Current Visit: No Status: Chronic Qualifiers: Diabetes mellitus terminal operator insulin use: unspecified terminal operator insulin use status Diabetes mellitus complication status: with unspecified complications Qualified Code(s): E11.8 - Type 2 diabetes mellitus with unspecified complications (3) CAD (coronary artery disease) Current Visit: No Status: Chronic Qualifiers: Coronary Disease-Associated Artery/Lesion type: [place] artery [place] vs. transplanted heart: [place] heart Associated angina: without angina Qualified Code(s): I25.10 - Atherosclerotic heart disease of [place] coronary artery without angina pectoris (4) Arthritis of knee Current Visit: No Status: Chronic (5) Status post total bilateral knee replacement Current Visit: No Status: Acute (6) HTN (hypertension) Current Visit: No Status: Chronic Qualifiers: Hypertension type: essential hypertension Qualified Code(s): I10 - Essential (primary) hypertension (7) COPD (chronic obstructive pulmonary disease) Current Visit: No Status: Chronic Qualifiers: COPD type: unspecified COPD Qualified Code(s): J44.9 - Chronic obstructive pulmonary disease, unspecified (8) Acute blood loss anemia Current Visit: Yes Status: Acute Subjective Interval history: Patient was seen this morning doing well without complaints. Afebrile vital signs stable. Bilateral Operative extremity: Neurovascularly intact Dressing clean dry and intact [place] nontender right slightly tender left will obtain Doppler exam Assessment and plan: Continue with postoperative care Hemoglobin 9.3 discharged today if placement established Objective Vital signs: Vital Signs Temp Pulse Resp BP Pulse Ox 10/30/17 07:56 99.1 F 103 16 127/73 95 10/29/17 23:08 98.7 F 101 16 102/64 93 10/29/17 22:41 16 93 10/29/17 21:00 95 10/29/17 20:25 98.8 F 100 16 102/64 93 10/29/17 16:07 16 95 10/29/17 14:35 98.4 F 100 16 102/64 95 10/29/17 11:32 16 95 10/29/17 09:58 98.2 F 105 16 110/67 96 Intake and Output 10/29/17 10/30/1710/30/18 23:59 07:59 15:59 Intake Total 100 / 100 Output Total 475 / 475 Balance -375 / -375 Intake: Oral 100 / 100 Output: Urine 475 / 475 Other: Blood Glucose* 202 177 - Labs CBC & BMP: 10/30/17 05:28 10/30/17 05:28 Labs: Abnormal lab results Hgb 9.3 g/dL (12.9-16.9) L 10/30/17 05:28 Hct 29.0 % (37.5-50.1) L 10/30/17 05:28 Sodium 131 mEq/L (136-145) L 10/30/17 05:28 Chloride 94 mEq/L (98-107) L 10/30/17 05:28 Glucose 161 mg/dL (70-105) H 10/30/17 05:28 POC Glucose 215 (58-89) H 10/29/17 16:21 Calculated Osmolality 277 (280-300) L 10/30/17 05:28 - VTE Documentation of Mechanical Device: Venous foot pump, device Consult Discharge Plan - Plan Referrals: Betsy Spencer, [facility]PER [Primary Care Provider] -
[2017-10-30] MEDS: Insulin LISPRO 300 UNITS/3 ML VIAL SQ SCH ×3 (08:55→18:04)
[2017-10-30] MEDS: Isosorbide MONOnitrate (24 HR) 60 MG TAB.ER.24H PO SCH (08:55)
[2017-10-30] MEDS: *HR* Metformin 500 MG TABLET PO SCH ×2 (08:55→18:04)
[2017-10-30] MEDS: Aspirin 81 MG TAB.CHEW PO SCH (08:55)
[2017-10-30] MEDS: Furosemide 40 MG TABLET PO SCH (08:56)
[2017-10-30] MEDS: (Fluticasone/Vilanterol [Breo Ellipta 200-25 Mcg Inh] IH SCH (08:56)
[2017-10-30] MEDS: Levothyroxine 25 MCG TABLET PO SCH (08:56)
[2017-10-30] MEDS: *HR* Glimepiride 2 MG TABLET PO SCH (08:56)
[2017-10-30] MEDS: Cholecalciferol (D-3) 1,000 UNIT TABLET PO SCH (08:56)
[2017-10-30] MEDS: (Empagliflozin [Jardiance] 25 MG) PO SCH (08:56)
[2017-10-30] MEDS ORDERED: FLUARIX QUAD 2017-18 36MOS UP/PF 0.5 ML SYRINGE IM ONE ×2 (11:20→18:15)
[2017-10-30] MEDS: Tiotropium 18 MCG inhalation IH SCH (11:23)
--- NOTE | 2017-10-30 14:22 | Event Note ---
Date of Encounter: 10/30/17 Time of Encounter: 14:20 PCR - POD#2 Bilateral TKR - (PRP Left Knee). Patient seen at bedside. Doing well Labs reviewed. Pain control: Added Lidoderm patch - helping Dressing to Right knee - changed and new one placed. Participating in PT. All questions and concerns addressed. Educated on use of incentive spirometer. Encouraged ambulation and proper hydration. Patient educated on post-operative restrictions and post-operative care. Addressed: DC ECF continuity placed Discharge plan: Bipap at night 2 L O2 LPM
[2017-10-30 18:50] VITALS: BP 128/68
== END 2017-10-30 19:50 | DRG 302 ==
LOC: SAMDAY 06:17 → 3NENU 11:41
PROVIDERS: ADMIT Orthopaedic Surgery; ATTEND Orthopaedic Surgery

== ENCOUNTER 2018-04-17 10:46 | Observation (INO) ==
[2018-04-17] MEDS ORDERED: Aspirin 81 MG TAB.CHEW PO ONE (11:04)
[2018-04-17] MEDS ORDERED: 0.9 % Sodium Chloride 1,000 ML IVC ONE (11:07)
--- NOTE | 2018-04-17 11:10 | Emergency Department Note ---
Disposition Clinical Impression: Chest pain Qualifiers: Chest pain type: unspecified Qualified Code(s): R07.9 - Chest pain, unspecified Leukocytosis Qualifiers: Leukocytosis type: unspecified Qualified Code(s): D72.829 - Elevated white blood cell count, unspecified Disposition: Admitted As Inpatient Condition: Good Time of Disposition: 12:53 General Adult HPI - General Chief complaint: ED Chest Pain Stated complaint: chest pain, MELISSA Time Seen by Provider: 04/17/18 10:57 Source: patient, family Limitations: no limitations Nursing Notes Reviewed: Yes Vital Signs Reviewed: Yes - History of Present Illness HPI Narrative: Patient is a 52-year-old male that since emergency Department with chest pain. Patient states this been ongoing for the past 2-3 days but has significantly gotten worse this morning. Patient states that the pain is located in the center of his chest and describes it as a tightness. Patient states that he has had pain is radiated up into his left jaw and into his right arm. Patient also states that the pain does radiate into the center of his back between his shoulder blades. Describes it as a sharp pain that radiates into his back. Patient does state that the pain is worse with exertion. Patient states that her shortness of breath gets worse if he walks very short distance. Patient also reports that he has intermittent diaphoresis and nausea associated with this chest pain. Patient states that he had a previous heart catheter approximately one year ago and had a 90% blockage that was unable to be stented due to being a small vessel. Pain Scale: 4 - Related Data Home Medications Medication Instructions Recorded Confirmed Albuterol Sulfate [Ventolin Hfa] 2 puff IH QID PRN 04/21/17 04/17/18 Carvedilol [Coreg] 6.25 mg PO BIDWM 04/21/17 04/17/18 Ergocalciferol (VITAMIN D2) 2,000 unit PO DAILY 04/21/17 04/17/18 [Vitamin D2] Furosemide [Lasix] 40 mg PO DAILY 04/21/17 04/17/18 Glimepiride [Amaryl] 2 mg PO QAM 04/21/17 04/17/18 Levothyroxine Sodium [Tirosint] 25 mcg PO DAILY 04/21/17 04/17/18 Losartan Potassium [Cozaar] 50 mg PO DAILY 04/21/17 04/17/18 Pantoprazole Sodium [Protonix] 40 mg PO DAILY 04/21/17 04/17/18 Polyethylene Glycol 3350 [MiraLAX] 17 gm PO BID PRN 04/21/17 04/17/18 Empagliflozin [Jardiance] 25 mg PO DAILY 07/20/17 04/17/18 Lovastatin 40 mg PO HS 07/20/17 04/17/18 Meclizine HCl [Verticalm] 25 mg PO DAILY PRN 07/20/17 04/17/18 Metformin HCl [Glucophage] 1,000 mg PO BID 07/20/17 04/17/18 Nitroglycerin [Nitrolingual] 1 spray TL DAILY 07/20/17 04/17/18 Aspirin 81 mg PO DAILY 10/28/17 04/17/18 Fluticasone/Vilanterol [Breo 1 puff IH DAILY 10/28/17 04/17/18 Ellipta 200-25 Mcg INH] Tiotropium [place] [Spiriva 2 puff IH DAILY 10/28/17 04/17/18 Respimat] Previous Rx's Medication Instructions Recorded Isosorbide MONOnitrate (24 HR) 60 mg PO DAILY #30 tab.er.24h 07/22/17 [Imdur] Allergies Allergy/AdvReac Type Severity Reaction Status Date / Time No Known Allergies Allergy Verified 04/17/18 13:32 All systems ED: reviewed and negative except as stated. Constitutional: Reports: other (Diaphoresis) Cardiovascular: Reports: chest pain Respiratory: Reports: dyspnea Gastrointestinal: Reports: nausea Past Medical History - Past Medical History Medical history: Reports: arthritis, CHF, COPD, coronary artery disease, diabetes, hyperlipidemia, hypertension Surgical history: Reports: angioplasty/stent, orthopedic, other Psychiatric history: Reports: no psych history - Social History Smoking Status: Former smoker Smokeless Tobacco Status: No Alcohol use: Reports: none Drug use: Reports: none Physical Exam - General Limitations: no limitations General appearance: alert, in no apparent distress - Head Head exam: atraumatic, normocephalic - Eye Eye exam: Present: normal appearance, EOMI - Neck Neck exam: Present: normal inspection, full ROM, trachea midline - Respiratory Respiratory exam: Present: normal lung sounds bilaterally. Absent: respiratory distress, wheezes - Cardiovascular Cardiovascular exam: Present: regular rate, normal rhythm, normal heart sounds, +S1, +S2 - Abdominal Exam Abdominal exam: Present: soft, Non-Tender, normal bowel sounds - Neurological Exam Neurological exam: Present: alert, oriented X3 - Psychiatric Psychiatric exam: Present: normal affect, normal mood - Skin Skin exam: Present: warm, dry, intact Course Vital Signs Temperature 97.9 F 04/17/18 10:49 Pulse Rate 96 04/17/18 10:49 Respiratory Rate 18 04/17/18 10:49 Blood Pressure 161/94 04/17/18 10:49 O2 Sat by Pulse Oximetry 92 04/17/18 10:49 Temperature 97.9 F 04/17/18 11:01 Pulse Rate 96 04/17/18 11:01 Respiratory Rate 18 04/17/18 11:01 Blood Pressure 161/94 04/17/18 11:01 O2 Sat by Pulse Oximetry 92 04/17/18 11:01 Oxygen Delivery Oxygen Delivery Room Air Medical Decision Making - MDM Narrative Medical decision making narrative: Due to patient presented to the emergency department with chest pain and shortness of breath there is concern for possible cardiac involvement. We will obtain basic laboratory tests including CBC, BMP, troponin chest x-ray EKG and a CT angios chest abdomen pelvis to rule out possible dissection due to the patient having pain is radiating from his chest directly into his back between his shoulder blades. She does have an elevated white count of 14. This is nonspecific. Patient's chest x-ray showed no acute cardiopulmonary process. EKG did not show any acute ischemic changes. Rate of his laboratory testing was unremarkable including a negative troponin at this time. However due to the patient's history and presenting symptoms I feel it is important the patient be admitted to the hospital for further evaluation and management. CTA of chest abdomen and pelvis showed no acute evidence of dissection. I called and spoke with the admitting hospitalist Dr. Arguello and he has accepted the patient to their service. Patient will be admitted to the hospital for further evaluation and management. - Medical Records Medical records reviewed: Yes I reviewed the patient's medical records. - Lab Data Lab results reviewed: Yes I reviewed the patient's lab results. Result diagrams: 04/17/18 11:26 04/17/18 11:26 - Radiology Data Radiology results reviewed: Yes I reviewed the patient's radiology results. Abdomen/Pelvis CTA 04/17/18 11:04 IMPRESSION: 1. No acute abnormality identified of the thoracic or abdominal aorta. No evidence of an aneurysm or dissection. 2. Predominately centrilobular ground-glass nodules within the upper lobes bilaterally, which may be infectious or inflammatory in etiology. 3. No acute abnormality identified within the abdomen or pelvis. 4. Diverticulosis without evidence of acute diverticulitis. D/ / Marty Jiménez MD / Marty Jiménez MD Interpreting Provider: Marty Jiménez MD Chest CTA 04/17/18 11:04 IMPRESSION: 1. No acute abnormality identified of the thoracic or abdominal aorta. No evidence of an aneurysm or dissection. 2. Predominately centrilobular ground-glass nodules within the upper lobes bilaterally, which may be infectious or inflammatory in etiology. 3. No acute abnormality identified within the abdomen or pelvis. 4. Diverticulosis without evidence of acute diverticulitis. D/ / Marty Jiménez MD / Marty Jiménez MD Interpreting Provider: Marty Jiménez MD Chest X-Ray 04/17/18 11:04 IMPRESSION: No acute findings. D/ / Karyn Trimble MD / Karyn Trimble MD Interpreting Provider: Karyn Trimble MD - EKG Data EKG #1 EKG attestation: Yes I reviewed and interpreted this EKG. EKG results narrative: EKG shows a sinus rhythm at a rate of 89 bpm, OK interval 153, QRS duration 82, QTC of 425 with a normal axis. No evidence of STEMI on EKG. This is compared to previous EKG on 07/20/17 which showed sinus tachycardia at a rate of 103 bpm. Attestation Statement - Attestation Attestation: I, Naveen Calvert, examined this patient and my medical decision-making was reviewed with the COST ESTIMATING ENGINEER/PA/Advanced Practice Nurse/Resident Physician. I agree with the documented findings, disposition and treatment plan as described except to the extent set forth below. 52-year-old male presents emergency Department with concerns of acute onset chest pain. Patient states pain is been worsening over the past few days intermittently with exertion. Patient states he woke this morning the pain is in the center of his chest and radiates to the middle of his back. He has a history of hypertension, hyperlipidemia, diabetes and a long history of tobacco abuse. Patient does have a history of COPD however he states that this does not feel similar to his previous COPD exacerbations. Initial EKG did not show evidence of acute STEMI. Initial troponin was negative. CTA of the chest did not show evidence of aortic dissection. Patient will be admitted to the hospitalist for further care and evaluation of his acute onset chest pain.
[2018-04-17 11:38] LABS: Basophils # 0.1 K/mcL (0.0-0.2); Basophils % 0.5 %; Eosinophils # 0.3 K/mcL (0.0-0.6); Eosinophils % 2.4 %; Hematocrit 44.7 % (37.5-50.1); Hemoglobin 14.2 g/dL (12.9-16.9); Immature Granulocytes % 0.5 % (0-4); Lymphocytes # 2.2 K/mcL (0.6-4.6); Lymphocytes % 15.5 %; Mean Corpuscular HGB Conc 31.8 g/dL (31.6-35.5); Mean Corpuscular Hemoglobin 25.1 pg (28.0-33.3); Mean Corpuscular Volume 79.1 fL (83.0-100.0); Mean Platelet Volume 9.2 fL (9.4-12.4); Monocytes # 1.3 K/mcL (0.0-1.3); Monocytes % 9.5 %; Platelet Count 344 K/mcL (140-400); Red Blood Count 5.65 M/mcL (4.19-5.50); Red Cell Distribution Width 16.7 % (11.5-14.5); Segmented Neutrophils % 71.6 %
[2018-04-17 11:43] LABS: Prothrombin Time 11.4 Seconds (9.4-12.1)
[2018-04-17 12:06] LABS: BUN/Creatinine Ratio 16 (6-26); Blood Urea Nitrogen 14 mg/dL (6-20); Calcium 9.8 mg/dL (8.6-10.3); Carbon Dioxide 24 mEq/L (23-29); Chloride 97 mEq/L (98-107); Glucose 159 mg/dL (70-105); Osmolality,Calculated 280 (280-300); Potassium 3.9 mEq/L (3.5-5.1); Sodium 133 mEq/L (136-145); eGFR For Non-African Americans > 60 (> 60)
[2018-04-17 12:07] LABS: Troponin I < 0.03 ng/mL (< 0.04)
[2018-04-17] MEDS: Isovue-370 500 ML INFUS..BTL IV ONE (12:41)
[2018-04-17] MEDS ORDERED: Naloxone 0.4 MG/ML INJ IVP PRN (13:48)
[2018-04-17] MEDS ORDERED: Ondansetron 4 MG/2 ML VIAL IVP PRN (13:48)
[2018-04-17] MEDS ORDERED: Nitroglycerin 0.4 MG TAB.SUBL SL PRN (13:48)
--- NOTE | 2018-04-17 13:55 | Internal Med History&Physical ---
Date of Encounter: 04/17/18 Time of Encounter: 13:55 Internal Medicine - H&P: HPI History of present illness: Mr. West is a 52 year old male Past Med Surg Social Fam HX - Past Medical History Medical history: arthritis, CHF, COPD, coronary artery disease, diabetes, hyperlipidemia, hypertension Additional medical history: fatty liver Psychiatric history: no psych history - Past Surgical History Surgical History: angioplasty/stent, orthopedic, other Additional surgical history: b/l knee arthroscopy, CTR to left, Heart cath 2016 - Social History Smoking Status: Former smoker Smokeless Tobacco Status: No Alcohol use: none Drug use: none - Family History Mother Living Status: Hx Family Cardiac Disorders: Yes Father Living Status: Still Living Hx Family Cardiac Disorders: Yes Internal Medicine - H&P: Meds Albuterol Sulfate [Ventolin Hfa] 2 puff IH QID PRN 04/21/17 [History] Carvedilol [Coreg] 6.25 mg PO BIDWM 04/21/17 [History] Ergocalciferol (VITAMIN D2) [Vitamin D2] 2,000 unit PO DAILY 04/21/17 [History] Furosemide [Lasix] 40 mg PO DAILY 04/21/17 [History] Glimepiride [Amaryl] 2 mg PO QAM 04/21/17 [History] Levothyroxine Sodium [Tirosint] 25 mcg PO DAILY 04/21/17 [History] Losartan Potassium [Cozaar] 50 mg PO DAILY 04/21/17 [History] Pantoprazole Sodium [Protonix] 40 mg PO DAILY 04/21/17 [History] Polyethylene Glycol 3350 [MiraLAX] 17 gm PO BID PRN 04/21/17 [History] Empagliflozin [Jardiance] 25 mg PO DAILY 07/20/17 [History] Lovastatin 40 mg PO HS 07/20/17 [History] Meclizine HCl [Verticalm] 25 mg PO DAILY PRN 07/20/17 [History] Metformin HCl [Glucophage] 1,000 mg PO BID 07/20/17 [History] Nitroglycerin [Nitrolingual] 1 spray TL DAILY 07/20/17 [History] Isosorbide MONOnitrate (24 HR) [Imdur] 60 mg PO DAILY #30 tab.er.24h 12/06/17 [ Rx] Aspirin 81 mg PO DAILY 10/28/17 [History] Fluticasone/Vilanterol [Breo Ellipta 200-25 Mcg INH] 1 puff IH DAILY 10/28/17 [ History] Tiotropium [place] [Spiriva Respimat] 2 puff IH DAILY 10/28/17 [History] 3 Allergy/AdvReac Type Severity Reaction Status Date / Time No Known Allergies Allergy Verified 04/17/18 13:32 All Systems PM: A 10-system review of systems was performed and is negative for pertinent findings except as documented above in the HPI. - Constitutional Vitals: Temp Pulse Resp BP Pulse Ox 97.9 F 96 18 161/94 92 04/17/18 11:01 04/17/18 11:01 04/17/18 11:01 04/17/18 11:01 04/17/18 11:01 Internal Med - H&P Results - Labs CBC & Chem 7: 04/17/18 11:26 04/17/18 11:26 - Time Spent With Patient Total time spent is greater than 50% in coordination of care (as documented) at patient's floor/unit and/or counseling patient:
[2018-04-17] MEDS ORDERED: *HR* HYDROcodone/Acet 5/325 mg TABLET PO PRN (14:01)
[2018-04-17] MEDS ORDERED: Acetaminophen 325 MG TABLET PO PRN (14:01)
[2018-04-17] MEDS ORDERED: *HR* Dextrose 50 % in Water (Syg) 50 ML SYRINGE IVP PRN (14:08)
[2018-04-17] MEDS ORDERED: D5% in Water 1,000 ML IVC PRN (14:08)
[2018-04-17] MEDS ORDERED: Dextrose Gel 15 GM/37.5 ML TUBE PO PRN ×2 (14:08)
--- NOTE | 2018-04-17 14:54 | Internal Med History&Physical ---
<PeggyAlan - Last Filed: 04/17/18 16:01> Date of Encounter: 04/17/18 Time of Encounter: 13:00 Internal Medicine - H&P: HPI Chief complaint: CP Admitted From: Emergency Dept Plans for Post Hospital Care: Home History of present illness: Mr. West is a 52 year old male w/PMH of arthritis, CHF, COPD with emphysema, CAD, diabetes controlled with oral anti-hyperglycemics, HLD, and HTN presents from the ED with chief complaint chest pain that began 3-4 days ago and has worsened over the past 24 hours. Sx came on at rest while driving. Reports previous stress test last year that was abnormal resulting in heart cath w/o stent placement. Pt. describes pain as centralized chest pressure w/squeezing w/ radiation to left jaw, left arm, and back. Alleviated by rest and nitro. Aggravated by exertion. Associated sx: Nausea, diaphoresis, SOB, headache, dizziness. Patient reports cough w/sputum production but denies recent illness , fever, chills, vomiting, changes in vision, unusual bleeding, abdominal pain, diarrhea, constipation, numbness, tingling, pre-syncope, or syncope. Past Med Surg Social Fam HX - Past Medical History Source: patient, old records reviewed, obtained from family Medical history: arthritis, CHF, COPD, coronary artery disease, diabetes, hyperlipidemia, hypertension Additional medical history: fatty liver Psychiatric history: no psych history - Past Surgical History Surgical History: angioplasty/stent (0 stents), orthopedic, other Additional surgical history: b/l knee arthroscopy, CTR to left, Heart cath 2016 - Social History Smoking Status: Former smoker Packs per day: 2.5 PPD - Reports quitting in 2000 Smokeless Tobacco Status: No Alcohol use: none Drug use: none Current living situation: Home, With Family Activity Level: Independent ambulation Recent Out of Country Travel Within the Last 8 Weeks: No Exposure or Possible Exposure to Illness During Travel: No - Family History Mother Race: Family Member Ethnicity: Non- Living Status: Age at : 64 Cause of : AL Hx Family Cardiac Disorders: Yes (AL, CVA) Hx Family Endocrine Disorder: Yes (DM) Hx Family Neurologic Disorders: Yes (CVA) Father Race: Family Member Ethnicity: Non- Living Status: Still Living Hx Family Cardiac Disorders: Yes (CAD, [place] x3, Stents) Brother Race: Family Member Ethnicity: Non- Living Status: Still Living Hx Family Cardiac Disorders: Yes (AL @ age 44, Triple bypass) Hx Family Endocrine Disorder: Yes (DM) Internal Medicine - H&P: Meds Albuterol Sulfate [Ventolin Hfa] 2 puff IH QID PRN 04/21/17 [History] Carvedilol [Coreg] 6.25 mg PO BIDWM 04/21/17 [History] Ergocalciferol (VITAMIN D2) [Vitamin D2] 2,000 unit PO DAILY 04/21/17 [History] Furosemide [Lasix] 40 mg PO DAILY 04/21/17 [History] Glimepiride [Amaryl] 2 mg PO QAM 04/21/17 [History] Levothyroxine Sodium [Tirosint] 25 mcg PO DAILY 04/21/17 [History] Losartan Potassium [Cozaar] 50 mg PO DAILY 04/21/17 [History] Pantoprazole Sodium [Protonix] 40 mg PO DAILY 04/21/17 [History] Polyethylene Glycol 3350 [MiraLAX] 17 gm PO BID PRN 04/21/17 [History] Empagliflozin [Jardiance] 25 mg PO DAILY 07/20/17 [History] Lovastatin 40 mg PO HS 07/20/17 [History] Meclizine HCl [Verticalm] 25 mg PO DAILY PRN 07/20/17 [History] Metformin HCl [Glucophage] 1,000 mg PO BID 07/20/17 [History] Nitroglycerin [Nitrolingual] 1 spray TL DAILY 07/20/17 [History] Isosorbide MONOnitrate (24 HR) [Imdur] 60 mg PO DAILY #30 tab.er.24h 07/22/17 [ Rx] Aspirin 81 mg PO DAILY 10/28/17 [History] Fluticasone/Vilanterol [Breo Ellipta 200-25 Mcg INH] 1 puff IH DAILY 10/28/17 [ History] Tiotropium [place] [Spiriva Respimat] 2 puff IH DAILY 10/28/17 [History] 3 Allergy/AdvReac Type Severity Reaction Status Date / Time No Known Allergies Allergy Verified 04/17/18 13:32 All Systems PM: A 10-system review of systems was performed and is negative for pertinent findings except as documented above in the HPI. - Constitutional Constitutional: as per HPI, no chills, no fever(s), no night sweats - EENT Eyes: no change in vision, no discharge, no pain, no photophobia Ears: no ear discharge, no ear pain, no tinnitus Nose, mouth and throat: no dysphagia, no nasal discharge, no neck pain, no sore throat - Breasts Breasts: as per HPI - Cardiovascular Cardiovascular ROS IM: as per HPI, chest pain, diaphoresis, dyspnea, dyspnea on exertion, lightheadedness, no palpitations, no syncope - Respiratory Respiratory: as per HPI, cough, dyspnea, dyspnea on exertion, excessive phlegm production, no wheezing - Gastrointestinal Gastrointestinal: as per HPI, nausea, no abdominal pain, no diarrhea, no hematemesis, no hematochezia, no melena, no vomiting - Genitourinary Genitourinary ROS male: as per HPI - Musculoskeletal Musculoskeletal ROS IM: arthralgias, no numbness, no tingling - Integumentary Integumentary IM: no rash, no unusual bruising - Neurological Neurological ROS: as per HPI, dizziness, no confusion, no convulsions, no focal weakness, no numbness, no tingling, no tremor(s) - Psychiatric Psychiatric: as per HPI - Endocrine Endocrine IM: as per HPI - Hematologic/Lymphatic Hematologic/Lymphatic: no easy bruising - Allergic/Immunologic Allergic/Immunologic: as per HPI - Constitutional Vitals: Temp Pulse Resp BP Pulse Ox 97.9 F 76 18 133/79 94 04/17/18 11:01 04/17/18 14:00 04/17/18 14:00 04/17/18 14:00 04/17/18 14:00 General appearance: Present: cooperative, A&O X 3, pleasant, no acute distress, obese, answers questions appropriately Exam: Pt. examined at bedside. Pt. resting comfortably in bed reporting no CP at present. Stated CP started 3-4 days ago as centralized squeezing in chest w/ radiation to left arm, left jaw, and back. Nitro spray helped pain. Reports being nauseous, SOB w/headache. Also reports dizziness w/standing and cough w/ sputum production. Denies other sx at this time. - Head Head exam: Present: atraumatic, normocephalic - Eye Eye exam: Present: PERRL, conjuntiva pink, sclera anicteric Pupils: Present: PERRL - ENT ENT exam: Present: normal exam - Neck Neck exam general surgery: Present: normal inspection, supple, trachea midline. Absent: lymphadenopathy - Respiratory Respiratory exam: Present: CTAB. Absent: accessory muscle use, rales, rhonchi, wheezes - Cardiovascular Cardiovascular exam: Present: RRR, +S1, +S2. Absent: diastolic murmur, gallop, rubs, systolic murmur - GI/Abdominal GI/Abdominal exam: Present: normal bowel sounds, soft, no peritoneal signs. Absent: distended, tenderness - Rectal Rectal exam: Present: deferred - Additional comments: exam deferred. - Extremities Exam Extremities exam: Present: warm, radial pulses palpable and symmetrical. Absent : calf tenderness, cyanotic, pedal edema - Back Exam Back exam: Present: normal inspection - Neurological Exam Neurological exam: Present: alert, CN II-XII intact, oriented X3, no focal deficits. Absent: pronater drift, facial droop, speech deficit - Psychiatric Psychiatric exam: Present: normal affect, normal mood - Skin Skin exam: Present: dry, intact Internal Med - H&P Results - Labs CBC & Chem 7: 04/17/18 11:26 04/17/18 11:26 - EKG Data EKG shows normal: sinus rhythm - EKG Data Prior EKG available for review: yes Interpretation IM: normal EKG EKG comments: 04/17/18 15:28 EKG dated 07/20/17 shows sinus tachycardia with marked left axis deviation and nonspecific ST-T changes. EKG dated 04/17/18 shows sinus rhythm w/normal P axis and V-rate of 50-99. - Diagnostic Studies Chest x-ray Additional comments: Impressions Chest X-Ray 04/17/18 11:04 IMPRESSION: No acute findings. D/ / Karyn Trimble MD / Karyn Trimble MD Interpreting Provider: Karyn Trimble MD CT scan - abdomen Additional comments: Impressions Abdomen/Pelvis CTA 04/17/18 11:04 IMPRESSION: 1. No acute abnormality identified of the thoracic or abdominal aorta. No evidence of an aneurysm or dissection. 2. Predominately centrilobular ground-glass nodules within the upper lobes bilaterally, which may be infectious or inflammatory in etiology. 3. No acute abnormality identified within the abdomen or pelvis. 4. Diverticulosis without evidence of acute diverticulitis. D/ / Marty Jiménez MD / Marty Jiménez MD Interpreting Provider: Marty Jiménez MD CT scan - chest Additional comments: Impressions Chest CTA 04/17/18 11:04 IMPRESSION: 1. No acute abnormality identified of the thoracic or abdominal aorta. No evidence of an aneurysm or dissection. 2. Predominately centrilobular ground-glass nodules within the upper lobes bilaterally, which may be infectious or inflammatory in etiology. 3. No acute abnormality identified within the abdomen or pelvis. 4. Diverticulosis without evidence of acute diverticulitis. D/ / Marty Jiménez MD / Marty Jiménez MD Interpreting Provider: Marty Jiménez MD - Assessment and plan (1) Chest pain Current Visit: Yes Status: Acute Assessment and plan: Acute CP that started 3-4 days ago and has worsened over the past 24 hours. Sx came on at rest while driving. Reports previous stress test last year that was abnormal resulting in heart cath w/o stent placement. Pt. describes pain as centralized chest pressure w/squeezing w/radiation to left jaw, left arm, and back. Alleviated by rest and nitro. Aggravated by exertion. Associated sx: Nausea, diaphoresis, SOB, headache, dizziness. Concern for possible PE d/t sx, so D-Dimer ordered. Awaiting results. Initial troponin <0.03. Will trend. Bilateral carotid Dopplers d/t dizziness. Echocardiogram. NPO @ midnight for a.m. stress test if troponins remain WNL. Cardiology consult ordered and discussed w/Dr. Tejada d/t pts. risk factors and previous abnormal stress test and I appreciate the consult and recommendations as always. Aspirin. Lipitor 80 mg NOW. Pt. discussed w/Dr. Arguello who agrees w/plan of care. Pt. is high risk for cardiac event and further morbidity based on current sx, previous CP and abnormal stress test one year ago; and risk factors of CAD, DM, HLD, HTN, and CHF. Observation. Qualifiers: Chest pain type: unspecified Qualified Code(s): R07.9 - Chest pain, unspecified (2) Leukocytosis Current Visit: Yes Status: Acute Assessment and plan: Acute leukocytosis w/WBC of 14.0 on admission. Pt. reports cough w/sputum production but denies recent illness, fever, chills. Pt. afebrile w/temp of 97.8. HR 80, RR 16, BP 124/71, SpO2 92% on RA. Sputum culture ordered. Legionella and strep pneumoniae antigens ordered. Mycoplasma pneumonia ordered. Respiratory infection panel ordered. Blood cultures 2 ordered stat. IVP be doxycycline 100 mg every 12 hours for possible PNA coverage. Will adjust abx coverage based on culture results if warranted. Qualifiers: Leukocytosis type: unspecified Qualified Code(s): D72.829 - Elevated white blood cell count, unspecified (3) Nausea and vomiting Current Visit: Yes Status: Acute Assessment and plan: Acute Nausea accompanying CP sx. IVP Zofran and Phenergan ordered. Qualifiers: Vomiting type: cyclical vomiting Vomiting Intractability: unspecified Qualified Code(s): G43.A0 - Cyclical vomiting, not intractable (4) CAD (coronary artery disease) Current Visit: Yes Status: Chronic Assessment and plan: Hx of chronic CAD w/previous heart cath w/o stents and abnormal stress test last year. Continuous cardiac telemetry. Echocardiogram. Aspirin daily. Continue pts. HTN and HLD medications. Qualifiers: Coronary Disease-Associated Artery/Lesion type: havasupai artery [place] vs. transplanted heart: havasupai heart Associated angina: without angina Qualified Code(s): I25.10 - Atherosclerotic heart disease of havasupai coronary artery without angina pectoris (5) COPD (chronic obstructive pulmonary disease) Current Visit: Yes Status: Chronic Assessment and plan: Hx of chronic COPD w/emphysema. Stable. Continue pts. inhalers. DuoNebs Q4HR scheduled. Supplemental O2 w/titration and SpO2 monitoring. Qualifiers: COPD type: unspecified COPD Qualified Code(s): J44.9 - Chronic obstructive pulmonary disease, unspecified (6) HLD (hyperlipidemia) Current Visit: Yes Status: Chronic Assessment and plan: Hx of chronic HLD. Lipid panel in a.m. labs. Continue pts. statin. Qualifiers: Hyperlipidemia type: pure hypercholesterolemia Qualified Code(s): E78.00 - Pure hypercholesterolemia, unspecified; E78.0 - Pure hypercholesterolemia (7) HTN (hypertension) Current Visit: Yes Status: Chronic Assessment and plan: Hx of chronic HTN. Monitor pt. and VS. Continue pts. Cozaar, Imdur, and Coreg. Qualifiers: Hypertension type: essential hypertension Qualified Code(s): I10 - Essential (primary) hypertension (8) Type 2 diabetes mellitus Current Visit: Yes Status: Chronic Assessment and plan: Hx of chronic DM controlled w/oral anti-hyperglycemic medications. Hold PO medications and administer low-dose correction sliding scale insulin w/ hypoglycemic protocol. BG checks ACHS. A1c in a.m. labs. Qualifiers: Diabetes mellitus terminal makeup operator insulin use: unspecified skilled nursing insulin use status Diabetes mellitus complication status: with unspecified complications Qualified Code(s): E11.8 - Type 2 diabetes mellitus with unspecified complications (9) DVT prophylaxis Current Visit: Yes Status: Acute Assessment and plan: Heparin 5,000 units SQ Q8HR for DVT prophylaxis. Monitor pt. for signs of bleeding. (10) Dizziness Current Visit: Yes Status: Acute Assessment and plan: Acute dizziness accompanying CP sx. Bilateral carotid Dopplers ordered. Falls/ safety precautions and up with assist only. - Time Spent With Patient Total time spent is greater than 50% in coordination of care (as documented) at patient's floor/unit and/or counseling patient: Greater than 35 minutes <Peggy Arguello - Last Filed: 04/17/18 16:29> Date of Encounter: 04/17/18 Internal Medicine - H&P: HPI History of present illness: Mr. West is a 52 year old male All Systems PM: A 10-system review of systems was performed and is negative for pertinent findings except as documented above in the HPI. - Constitutional Vitals: Temp Pulse Resp BP Pulse Ox 97.8 F 80 16 124/71 92 04/17/18 15:03 04/17/18 15:03 04/17/18 15:03 04/17/18 15:03 04/17/18 15:03 Internal Med - H&P Results - Labs CBC & Chem 7: 04/17/18 11:26 04/17/18 11:26 - Assessment and plan (1) Type 2 diabetes mellitus Current Visit: Yes Status: Chronic Qualifiers: Diabetes mellitus skilled nursing insulin use: unspecified skilled nursing insulin use status Diabetes mellitus complication status: with unspecified complications Qualified Code(s): E11.8 - Type 2 diabetes mellitus with unspecified complications (2) DVT prophylaxis Current Visit: Yes Status: Acute (3) CAD (coronary artery disease) Current Visit: Yes Status: Chronic Qualifiers: Coronary Disease-Associated Artery/Lesion type: havas[place]ai artery [place] vs. transplanted heart: havas[place]ai heart Associated angina: without angina Qualified Code(s): I25.10 - Atherosclerotic heart disease of havas[place]ai coronary artery without angina pectoris (4) HTN (hypertension) Current Visit: Yes Status: Chronic Qualifiers: Hypertension type: essential hypertension Qualified Code(s): I10 - Essential (primary) hypertension (5) COPD (chronic obstructive pulmonary disease) Current Visit: Yes Status: Chronic Qualifiers: COPD type: unspecified COPD Qualified Code(s): J44.9 - Chronic obstructive pulmonary disease, unspecified (6) Chest pain Current Visit: Yes Status: Acute Qualifiers: Chest pain type: unspecified Qualified Code(s): R07.9 - Chest pain, unspecified (7) Leukocytosis Current Visit: Yes Status: Acute Qualifiers: Leukocytosis type: unspecified Qualified Code(s): D72.829 - Elevated white blood cell count, unspecified (8) HLD (hyperlipidemia) Current Visit: Yes Status: Chronic Qualifiers: Hyperlipidemia type: pure hypercholesterolemia Qualified Code(s): E78.00 - Pure hypercholesterolemia, unspecified; E78.0 - Pure hypercholesterolemia (9) Nausea and vomiting Current Visit: Yes Status: Acute Qualifiers: Vomiting type: cyclical vomiting Vomiting Intractability: unspecified Qualified Code(s): G43.A0 - Cyclical vomiting, not intractable (10) Dizziness Current Visit: Yes Status: Acute - Time Spent With Patient Total time spent is greater than 50% in coordination of care (as documented) at patient's floor/unit and/or counseling patient: - Attending Attestation I have examined this patient and my medical decision-making was reviewed with the Nurse Practictioner. I agree with the documented findings, disposition and treatment plan as described except to the extent set forth below. 53 year old male with history of coronary artery disease presents for chest pain for 4 days. He has history of heart failure, COPD, DM. Pain radiated to his back. Had LHC one year ago that showed 90% blockage in one vessel. CTA of chest and abdomen were negative for aortic dissection and negative for PE. He did have ground glass densities in both upper lobes of lungs. He does also complain of cough with sputum production. He has initial troponin negative, EKG was normal sinus rhythm. WBC is borderline elevated at 14k with increase in neutrophils. Possibly patient symptoms are due to pneumonia. But will need to rule out ACS given his significant cardiac history. Cycle troponin, Cardiology consulted.
[2018-04-17] MEDS: Ipratropium/Albuterol Neb 3 ML IH SCH ×3 (15:26→23:19)
[2018-04-17] MEDS ORDERED: *HR* Promethazine 25 MG/ML VIAL IVP PRN (15:40)
[2018-04-17 16:13] LABS: Adenovirus Not Detected (Not Detect); Bordetella Pertussis Not Detected (Not Detect); Chlamydophila pneumoniae Not Detected (Not Detect); Coronavirus 229E Not Detected (Not Detect); Coronavirus HKU1 Not Detected (Not Detect); Coronavirus NL63 Not Detected (Not Detect); Coronavirus OC43 Not Detected (Not Detect); Human Metapneumovirus Not Detected (Not Detect); Human Rhinovirus/Enterovirus Not Detected (Not Detect); Influenza A Subtype 2009 H1 Not Detected (Not Detect); Influenza A Untypeable Not Detected (Not Detect); Influenza B Not Detected (Not Detect); Mycoplasma pneumoniae Not Detected (Not Detect); Parainfluenza Virus 1 Not Detected (Not Detect); Parainfluenza Virus 2 Not Detected (Not Detect); Parainfluenza Virus 3 Not Detected (Not Detect); Parainfluenza Virus 4 Not Detected (Not Detect); Respiratory Syncytial Virus Not Detected (Not Detect)
[2018-04-17] MEDS: Doxycycline 100 MG in 0.9 % Sodium Chloride Mini Bag 100 ML IVPB SCH (16:13)
[2018-04-17] MEDS: *HR* Heparin 5,000 UNIT/ML VIAL SQ SCH (16:13)
[2018-04-17] MEDS: Insulin LISPRO 300 UNITS/3 ML VIAL SQ SCH (17:33)
[2018-04-17] MEDS ORDERED: Insulin LISPRO 300 UNITS/3 ML VIAL SQ SCH (21:00)
[2018-04-18] MEDS: Ipratropium/Albuterol Neb 3 ML IH SCH ×3 (03:33→11:15)
[2018-04-18] MEDS: Doxycycline 100 MG in 0.9 % Sodium Chloride Mini Bag 100 ML IVPB SCH (05:50)
[2018-04-18] MEDS: *HR* Heparin 5,000 UNIT/ML VIAL SQ SCH (05:53)
[2018-04-18] MEDS ORDERED: Regadenoson 0.4 MG/5 ML SYRINGE IVP ONE ×2 (06:11→07:53)
[2018-04-18 06:43] LABS: Basophils % 0.5 %; Eosinophils # 0.3 K/mcL (0.0-0.6); Eosinophils % 3.8 %; Hematocrit 42.5 % (37.5-50.1); Hemoglobin 13.2 g/dL (12.9-16.9); Immature Granulocytes % 0.5 % (0-4); Lymphocytes # 1.9 K/mcL (0.6-4.6); Lymphocytes % 24.3 %; Mean Corpuscular HGB Conc 31.1 g/dL (31.6-35.5); Mean Corpuscular Hemoglobin 24.9 pg (28.0-33.3); Mean Platelet Volume 9.5 fL (9.4-12.4); Monocytes # 0.8 K/mcL (0.0-1.3); Monocytes % 10.6 %; Neutrophils # 4.7 K/mcL (1.6-8.9); Platelet Count 298 K/mcL (140-400); Red Blood Count 5.31 M/mcL (4.19-5.50); Red Cell Distribution Width 17.6 % (11.5-14.5); Segmented Neutrophils % 60.3 %
[2018-04-18] MEDS ORDERED: Cholecalciferol (D-3) 1,000 UNIT TABLET PO SCH (09:00)
[2018-04-18] MEDS ORDERED: (Tiotropium Bromide [Spiriva Respimat] 2 PUFF) IH SCH (09:00)
[2018-04-18] MEDS ORDERED: Levothyroxine 25 MCG TABLET PO SCH (09:00)
[2018-04-18] MEDS ORDERED: Aspirin 81 MG TAB.CHEW PO SCH (09:00)
[2018-04-18] MEDS ORDERED: (Fluticasone/Vilanterol [Breo Ellipta 200-25 Mcg Inh]) IH SCH (09:00)
[2018-04-18] MEDS ORDERED: Isosorbide MONOnitrate (24 HR) 60 MG TAB.ER.24H PO SCH (09:00)
[2018-04-18 09:21] LABS: BUN/Creatinine Ratio 12 (6-26); Blood Urea Nitrogen 12 mg/dL (6-20); Calcium 9.2 mg/dL (8.6-10.3); Carbon Dioxide 21 mEq/L (23-29); Chloride 102 mEq/L (98-107); Chol/HDL Ratio 5.2 (0-4.9); Cholesterol 131 mg/dL (< 200); Glucose 137 mg/dL (70-105); HDL Cholesterol 25 mg/dL (40-59); Magnesium 2.2 mg/dL (1.6-2.6); Osmolality,Calculated 282 (280-300); Potassium 4.6 mEq/L (3.5-5.1); Sodium 135 mEq/L (136-145); Triglycerides 424 mg/dL (< 150); eGFR For Non-African Americans > 60 (> 60)
[2018-04-18] MEDS: Insulin LISPRO 300 UNITS/3 ML VIAL SQ SCH ×2 (10:33→11:23)
--- NOTE | 2018-04-18 10:43 | Cardiology Consult Note ---
Date of Encounter: 04/18/18 Time of Encounter: 10:00 Assessment and Plan (1) Chest pain Current Visit: No Status: Resolved Atypical/typical chest pain symptoms. No ECG changes noted. Troponin negative x3. Nuclear stress test pending; known small vessel CAD. Will await stress test findings for further recommendations; if no changes on stress (known basal-apical inferior wall defect) will continue medical therapy. Continue current CV medications including asa, statin, BB, and nitrates. Ideally increase imdur to 90 mg daily, BP currently marginal, will decrease ARB to allow for BP room to increase nitrates. Echo pending. Further recommendation to follow results. Qualifiers: Chest pain type: chest pain due to myocardial ischemia Ischemic chest pain type: unstable angina pectoris Qualified Code(s): I20.0 - Unstable angina (2) CAD (coronary artery disease) Current Visit: Yes Status: Chronic Hx of small vessel CAD, not amendable to PCI. [facility] 04/2017--90% dLCx, small vessel; medical therapy recommended. Otherwise, mild non-obstructive CAD with preserved EF. Plan as above, continue current CV medications. Qualifiers: Coronary Disease-Associated Artery/Lesion type: [place] artery [place] vs. transplanted heart: [place] heart Associated angina: with stable angina Qualified Code(s): I25.118 - Atherosclerotic heart disease of [place] coronary artery with other forms of angina pectoris (3) COPD (chronic obstructive pulmonary disease) Current Visit: Yes Status: Chronic Mgmt per primary team. Qualifiers: COPD type: unspecified COPD Qualified Code(s): J44.9 - Chronic obstructive pulmonary disease, unspecified Discussion w patient/family: The assessment and plan as outlined above was discussed with the patient and/or family members who expressed understanding and agreement. All questions were answered. Thank you for involving us in the care of your patient. Please call with any questions. The patient will be discussed and reviewed with Dr. Tejada; changes to be made accordingly. History of Present Illness Consult date: 04/18/18 Requesting physician: Peggy Arguello Consult reason: Chest pain Chief complaint: Shortness of breath, chest pain History of present illness: Mr. West is a 52 year old male with PMHx significant for CAD, COPD, DMII, HTN, and MO who presented to the ED with complaints of chest discomfort that has been worsening over the past 3-4 days. Chest pain is described as dull ache and at times sharp pain that radiates through his back. He reports symptoms improve with rest and worsen with exertion. Associated symptoms include dyspnea, he reports he was unable to determine if COPD or heart was causing his issues. Of note, he reports single episode midsternal chest tightness/pressure with radation to left jaw/arm x3 weeks ago while driving, he took NTG tab which resolved symptoms, denies recurrence. Troponin negative x3. No ECG changes present. Prior CV testing: [facility] 04/2017: severe single vessel CAD--90% dLCx described as small vessel; otherwise mild, non-obstructive CAD (30% LMCA, 30% mRCA). Medical therapy recommended Nuclear stress 04/2017: small, medium sized perfusion defect involving the basal-apical inferior wall Past Med Surg Social Fam HX - Past Medical History Attestation: Yes The following information was validated with the patient. Source: patient Medical history: arthritis, COPD, coronary artery disease, diabetes, hyperlipidemia, hypertension Additional medical history: fatty liver Psychiatric history: no psych history - Past Surgical History Surgical History: angioplasty/stent (0 stents), orthopedic, other Additional surgical history: b/l knee arthroscopy, CTR to left, Heart cath 2016 - Social History Smoking Status: Former smoker Packs per day: 2.5 PPD - Reports quitting in 2000 Smokeless Tobacco Status: No Alcohol use: none Drug use: none - Family History Mother Race: Family Member Ethnicity: Non- Living Status: Age at : 64 Cause of : DE Hx Family Cardiac Disorders: Yes (DE, CVA) Hx Family Endocrine Disorder: Yes (DM) Hx Family Neurologic Disorders: Yes (CVA) Father Race: Family Member Ethnicity: Non- Living Status: Still Living Hx Family Cardiac Disorders: Yes (CAD, [place] x3, Stents) Brother Race: Family Member Ethnicity: Non- Living Status: Still Living Hx Family Cardiac Disorders: Yes (DE @ age 44, Triple bypass) Hx Family Endocrine Disorder: Yes (DM) Medications and Allergies Albuterol Sulfate [Ventolin Hfa] 2 puff IH QID PRN 04/21/17 [History] Carvedilol [Coreg] 6.25 mg PO BIDWM 04/21/17 [History] Ergocalciferol (VITAMIN D2) [Vitamin D2] 2,000 unit PO DAILY 04/21/17 [History] Furosemide [Lasix] 40 mg PO DAILY 04/21/17 [History] Glimepiride [Amaryl] 2 mg PO QAM 04/21/17 [History] Levothyroxine Sodium [Tirosint] 25 mcg PO DAILY 04/21/17 [History] Losartan Potassium [Cozaar] 50 mg PO DAILY 04/21/17 [History] Pantoprazole Sodium [Protonix] 40 mg PO DAILY 04/21/17 [History] Polyethylene Glycol 3350 [MiraLAX] 17 gm PO BID PRN 04/21/17 [History] Empagliflozin [Jardiance] 25 mg PO DAILY 07/20/17 [History] Lovastatin 40 mg PO HS 07/20/17 [History] Meclizine HCl [Verticalm] 25 mg PO DAILY PRN 07/20/17 [History] Metformin HCl [Glucophage] 1,000 mg PO BID 07/20/17 [History] Nitroglycerin [Nitrolingual] 1 spray TL DAILY 07/20/17 [History] Isosorbide MONOnitrate (24 HR) [Imdur] 60 mg PO DAILY #30 tab.er.24h 07/22/17 [ Rx] Aspirin 81 mg PO DAILY 10/28/17 [History] Fluticasone/Vilanterol [Breo Ellipta 200-25 Mcg INH] 1 puff IH DAILY 10/28/17 [ History] Tiotropium [place] [Spiriva Respimat] 2 puff IH DAILY 10/28/17 [History] 3 Allergy/AdvReac Type Severity Reaction Status Date / Time No Known Allergies Allergy Verified 04/17/18 13:32 All Systems Review: The remainder of the systems were reviewed and are negative - Cardiovascular Cardiovascular: as per HPI Physical Examination General: Conversant, No Apparent Distress HEENT: Atraumatic, Normocephaly, Mucus Membranes Moist Neck: No JVD, Normal carotid pulses Cardiac: Reg Rate and Rhythm, Normal S1 and S2, No Murmur Lungs: Normal Breath Sounds, No Wheeze, Rales, Rhonchi Neuro: Alert and responsive, No focal deficits noted Abdomen: Soft, Non-Tender Skin: No rashes noted on visualized skin Musculoskeletal: No Chest Wall Tenderness Extremities: No Clubbing, No Cyanosis, No Edema, Normal Pulses Results 04/18/18 05:52 04/18/18 05:52 Lab Results 04/17/18 04/17/18 04/18/18 17:39 23:00 05:52 WBC 7.8 Hgb 13.2 Hct 42.5 Plt Count 298 Sodium Potassium Chloride Carbon Dioxide BUN Creatinine Glucose Calcium Magnesium Troponin I < 0.03 < 0.03 04/18/18 05:52 WBC Hgb Hct Plt Count Sodium 135 L Potassium 4.6 Chloride 102 Carbon Dioxide 21 L BUN 12 Creatinine 0.97 Glucose 137 H Calcium 9.2 Magnesium 2.2 Troponin I Active Medications Acetaminophen (Tylenol) 650 mg PO Q6HR PRN PRN Reason: Mild Pain/Fever Stop: 10/17/18 14:02 Hydrocodone Bitart/Acetaminophen ([place] 5-325 Mg) 1 tab PO Q6HR PRN PRN Reason: Moderate Pain Stop: 10/17/18 14:02 Albuterol/Ipratropium (Duoneb) 3 ml IH [id number] [facility] Stop: 10/17/18 16:01 Last Admin: 04/18/18 07:50 Dose: Not Given Aspirin (Aspirin) 81 mg PO DAILY [facility] Stop: 10/18/18 09:01 Carvedilol (Coreg) 6.25 mg PO BIDWM JASMIN PRN Reason: Protocol Stop: 10/17/18 17:01 Last Admin: 04/17/18 16:14 Dose: 6.25 mg Dextrose/Water (Dextrose 50% (Syg)) 25 ml IVP AD PRN PRN Reason: Hypoglycemia Stop: 10/17/18 14:09 Furosemide (Lasix) 40 mg PO DAILY [facility] Stop: 10/19/18 09:01 Glucagon (Glucagen) 1 mg IM ONCE PRN PRN Reason: Hypoglycemia Stop: 10/17/18 14:09 Glucose (Gluctose) 15 gm PO ONCE PRN PRN Reason: Hypoglycemia Stop: 10/17/18 14:09 Glucose (Gluctose) 30 gm PO ONCE PRN PRN Reason: Hypoglycemia Stop: 10/17/18 14:09 Heparin Sodium (Porcine) (Heparin) 5,000 unit SQ Q12HCO [facility] Stop: 10/17/18 18:01 Last Admin: 04/18/18 05:53 Dose: 5,000 unit Dextrose (Dextrose 5%) 1,000 mls @ 100 mls/hr IVC .Q10H PRN PRN Reason: HYPOGLYCEMIA Stop: 10/17/18 14:09 Doxycycline Hyclate 100 mg/ (Sodium Chloride) 100 mls @ 100 mls/hr IVPB Q12HR JASMIN Stop: 10/17/18 18:01 Last Admin: 04/18/18 05:50 Dose: 100 mls/hr Insulin Human Lispro (Humalog) 0 units SQ HS JASMIN PRN Reason: Protocol Stop: 10/17/18 21:01 Last Admin: 04/17/18 21:50 Dose: Not Given Insulin Human Lispro (Humalog) 0 units SQ TIDWM JASMIN PRN Reason: Protocol Stop: 10/17/18 17:01 Last Admin: 04/18/18 10:33 Dose: Not Given Isosorbide Mononitrate (Imdur) 60 mg PO DAILY [facility] Stop: 10/18/18 09:01 Levothyroxine Sodium (Synthroid) 25 mcg PO DAILY [facility] Stop: 10/18/18 09:01 Losartan Potassium (Cozaar) 50 mg PO DAILY [facility] Stop: 10/18/18 09:01 Meclizine HCl (Antivert) 25 mg PO DAILY PRN PRN Reason: DIZZINESS Naloxone HCl (Narcan) 0.4 mg IVP Q2MIN PRN PRN Reason: SEE COMMENTS Stop: 10/17/18 13:49 Nitroglycerin (Nitroglycerin) 0.4 mg SL Q5MIN PRN PRN Reason: Chest Pain Stop: 10/17/18 13:49 Omeprazole (Prilosec) 20 mg PO 0630 [facility] Stop: 10/18/18 06:31 Last Admin: 04/18/18 05:54 Dose: 20 mg Ondansetron HCl (Zofran) 4 mg IVP Q8HR PRN PRN Reason: Nausea And Vomiting Stop: 10/17/18 13:49 Pharmacy Profile Note (Patient Taking Own Medication) 2 each IH DAILY [facility] Stop: 10/18/18 09:01 Pharmacy Profile Note (Patient Taking Own Medication) 1 each IH DAILY [facility] Stop: 10/18/18 09:01 Polyethylene Glycol (Miralax) 17 gm PO BID PRN PRN Reason: Constipation Stop: 10/17/18 14:03 Promethazine HCl (Phenergan) 12.5 mg IVP Q6HR PRN PRN Reason: Nausea And Vomiting Stop: 10/17/18 15:41 Simvastatin (Zocor) 20 mg PO HS JASMIN Stop: 10/18/18 21:01 Vitamin D (Vitamin D) 1,000 unit PO DAILY JASMIN Stop: 10/18/18 09:01 - Imaging and Cardiology Stress Test: report reviewed Echo: pending Cardiac cath: report reviewed Other Results: 12 hour tele: avg HR=66 SR. - EKG Interpretation EKG results cardiology: personally reviewed Consult Discharge Plan - Plan Referrals: Betsy Spencer, NUTRITIONAL HEALTH COACH [Primary Care Provider] -
[2018-04-18 11:27] VITALS: BP 125/77
[2018-04-18] MEDS ORDERED: Ipratropium/Albuterol Neb 3 ML IH PRN (14:04)
--- NOTE | 2018-04-18 15:01 | Discharge Summary ---
- NOTES TO OUTPATIENT PROVIDER Notes to Outpatient Provider: follow up with cardiology office. Follow-up lipid panel Orders not resulted at time of discharge: Pending orders 04/17/18 14:00 Culture,Sputum with Gram Stain [RM] Routine Legionella Antigen [RM] Routine Streptococcal pneumoniae urin antigen [S. Pneumoniae Antigen] [RM] Routine 04/17/18 15:15 NM columba perf SPECT multi [NM] Routine 04/17/18 17:35 Culture,Blood [BC] Stat Mycoplasma pneumoniae IgG IgM Routine Procalcitonin Routine 04/19/18 04:00 CBC [Complete Blood Count] [HEME] AM 0400 CMP [Comprehensive Metabolic Panel] AM 0400 04/20/18 04:00 CBC [Complete Blood Count] [HEME] AM 0400 CMP [Comprehensive Metabolic Panel] AM 0400 Date of Encounter: 04/18/18 Time of Encounter: 14:54 - Discharge Diagnosis (1) Chest pain Priority: Primary Status: Acute Qualifiers: Chest pain type: unspecified Qualified Code(s): R07.9 - Chest pain, unspecified (2) Type 2 diabetes mellitus Priority: Secondary Status: Chronic Qualifiers: Diabetes mellitus longterm insulin use: unspecified longterm insulin use status Diabetes mellitus complication status: with unspecified complications Qualified Code(s): E11.8 - Type 2 diabetes mellitus with unspecified complications (3) DVT prophylaxis Priority: Secondary Status: Acute (4) CAD (coronary artery disease) Priority: Secondary Status: Chronic Qualifiers: Coronary Disease-Associated Artery/Lesion type: [place] artery [place] vs. transplanted heart: [place] heart Associated angina: with stable angina Qualified Code(s): I25.118 - Atherosclerotic heart disease of [place] coronary artery with other forms of angina pectoris (5) HTN (hypertension) Priority: Secondary Status: Chronic Qualifiers: Hypertension type: essential hypertension Qualified Code(s): I10 - Essential (primary) hypertension (6) COPD (chronic obstructive pulmonary disease) Priority: Secondary Status: Chronic Qualifiers: COPD type: unspecified COPD Qualified Code(s): J44.9 - Chronic obstructive pulmonary disease, unspecified (7) Leukocytosis Priority: Secondary Status: Acute Qualifiers: Leukocytosis type: unspecified Qualified Code(s): D72.829 - Elevated white blood cell count, unspecified (8) HLD (hyperlipidemia) Priority: Secondary Status: Chronic Qualifiers: Hyperlipidemia type: pure hypercholesterolemia Qualified Code(s): E78.00 - Pure hypercholesterolemia, unspecified; E78.0 - Pure hypercholesterolemia (9) Nausea and vomiting Priority: Secondary Status: Acute Qualifiers: Vomiting type: cyclical vomiting Vomiting Intractability: unspecified Qualified Code(s): G43.A0 - Cyclical vomiting, not intractable (10) Dizziness Priority: Secondary Status: Acute Hospital course: Mr. West is a 52 year old male PMHx significant for CAD, COPD, DMII, HTN, and MO who presented to the ED with complaints of chest discomfort that has been worsening over the past 3-4 days. Prior CV testing: [facility] 04/2017: severe single vessel CAD--90% dLCx described as small vessel; otherwise mild, non-obstructive CAD (30% LMCA, 30% mRCA). Medical therapy recommended Nuclear stress 04/2017: small, medium sized perfusion defect involving the basal-apical inferior wall Due to his significant cardiac history and above abnormal tests he was admitted for chest pain rule out ACS. Troponin was followed which was negative 3. No ECG changes present. Cardiology was consulted. Nuclear stress test and echocardiogram was performed, results below. Medications were adjusted by the cardiology team. He had no chest pain throughout his hospital course. Cardiology team discussed the findings of the stress test with the patient and he chose to proceed with medical therapy for now. He understands his condition and understands that he needs to have close follow-up with the cardiology team as outpatient. On admission he had leukocytosis which was most likely secondary to dehydration from nausea and vomiting prior to admission. Chest x-ray showed no acute findings. He had no wheezing on examination. He had no cough or sputum production during hospitalization. Vitals remained stable afebrile and saturating well on room air. Repeat labs showed resolution of his leukocytosis. He was counseled on nutrition and diet. He was told to follow-up with his primary care physician and repeat lipid panel. He was started on high intensity statin therapy for elevated triglycerides and lipids given his cardiac status. CTA chest and abdomen IMPRESSION: 1. No acute abnormality identified of the thoracic or abdominal aorta. No evidence of an aneurysm or dissection. 2. Predominately centrilobular ground-glass nodules within the upper lobes bilaterally, which may be infectious or inflammatory in etiology. 3. No acute abnormality identified within the abdomen or pelvis. 4. Diverticulosis without evidence of acute diverticulitis. CXR IMPRESSION: No acute findings. TTE Impressions: LVEF 60%. Normal LV chamber size, wall thickness and function. Mild left ventricular diastolic dysfunction. No evidence of pulmonary hypertension. Mild pulmonic regurgitation. Normal right ventricular structure and function. NUCCARD: impression: Pharmacologic stress ECG is negative for ischemia at level of heart rate achieved. Gated EF > 70%. Medium sized, moderate intensity, fixed inferior and inferolateral perfusion defect. A prior infarct cannot be excluded. Perfusion imaging was negative for ischemia. Discharge discussed with: patient, child development consultant - Time Spent with Patient Total time spent providing and/or coordinating discharge services: Less than 30 minutes - Discharge Medications Prescriptions: Atorvastatin Calcium [Lipitor] 80 mg PO HS #30 tab Isosorbide MONOnitrate (24 HR) [Imdur] 90 mg PO DAILY #30 tab.er.24h Losartan [Cozaar] 25 mg PO DAILY #30 tablet Home Medications: Albuterol Sulfate [Ventolin Hfa] 2 puff IH QID PRN 04/21/17 [History] Carvedilol [Coreg] 6.25 mg PO BIDWM 04/21/17 [History] Ergocalciferol (VITAMIN D2) [Vitamin D2] 2,000 unit PO DAILY 04/21/17 [History] Furosemide [Lasix] 40 mg PO DAILY 04/21/17 [History] Glimepiride [Amaryl] 2 mg PO QAM 04/21/17 [History] Levothyroxine Sodium [Tirosint] 25 mcg PO DAILY 04/21/17 [History] Pantoprazole Sodium [Protonix] 40 mg PO DAILY 04/21/17 [History] Polyethylene Glycol 3350 [MiraLAX] 17 gm PO BID PRN 04/21/17 [History] Empagliflozin [Jardiance] 25 mg PO DAILY 07/20/17 [History] Meclizine HCl [Verticalm] 25 mg PO DAILY PRN 07/20/17 [History] Metformin HCl [Glucophage] 1,000 mg PO BID 07/20/17 [History] Nitroglycerin [Nitrolingual] 1 spray TL DAILY 07/20/17 [History] Aspirin 81 mg PO DAILY 10/28/17 [History] Fluticasone/Vilanterol [Breo Ellipta 200-25 Mcg INH] 1 puff IH DAILY 10/28/17 [ History] Tiotropium [place] [Spiriva Respimat] 2 puff IH DAILY 10/28/17 [History] Atorvastatin Calcium [Lipitor] 80 mg PO HS #30 tab 04/18/18 [Rx] Isosorbide MONOnitrate (24 HR) [Imdur] 90 mg PO DAILY #30 tab.er.24h 04/18/18 [ Rx] Losartan [Cozaar] 25 mg PO DAILY #30 tablet 04/18/18 [Rx] Allergies/Adverse Reactions: 3 Allergy/AdvReac Type Severity Reaction Status Date / Time No Known Allergies Allergy Verified 04/17/18 13:32 Date of admission: 04/17/18 13:41 Primary care physician: Betsy Spencer CNP Consults: 04/17/18 14:03 Consult to Cash Management Associate [CONS] Routine Reason for SW Consult: Please assess patient for possible home needs for post -discharge planning. 04/17/18 15:15 Consult to Cardiology [CONS] Routine Comment: Consulting Provider: Cardiology Tiesha Reason for Consult: Patient admitted w/CP for the past 3-4 days described as centralized squeezing pressure in chest w/radiation to left arm, left jaw, and back. Sx came on at rest. Nitro spray helped. Associated sx: nausea, diaphoresis, SOB, SANZ, dizziness. Abnormal stress test last year. Call Completed: Yes - Constitutional Vitals: Temp Pulse Resp BP Pulse Ox 97.5 F L 70 18 125/77 91 04/18/18 11:26 04/18/18 11:26 04/18/18 11:26 04/18/18 11:26 04/18/18 11:26 General appearance: Present: cooperative, A&O X 3, pleasant, no acute distress, obese, answers questions appropriately Exam: General: NAD, obese HEENT: Atraumatic, Normocephaly, Mucus Membranes Moist Neck: No JVD, Normal carotid pulses Cardiac: Reg Rate and Rhythm, Normal S1 and S2, No Murmur Lungs: Normal Breath Sounds, No Wheeze, Rales, Rhonchi Neuro: Alert and responsive, No focal deficits noted Abdomen: Soft, Non-Tender Skin: No rashes noted on visualized skin Musculoskeletal: No Chest Wall Tenderness Extremities: No Clubbing, No Cyanosis, No Edema, Normal Pulses - Patient Status Disposition: Home, Self-Care Condition: Good Functional capacity at discharge: independent ambulation Overall status at discharge: patient is back to baseline - Discharge Instructions Follow Up With: Betsy Spencer, BAN [Primary Care Provider] - Zion Tejada DO [Partnered Physician] - - Diet and Activity Activity: increase activity as tolerated Diet: advance to your usual diet, low salt diet
[2018-04-19] MEDS ORDERED: Furosemide 40 MG TABLET PO SCH (09:00)
[2018-04-20 15:55] LABS: Mycoplasma pneumoniae IgG 0.2 U/L (<=0.09)
--- NOTE | 2018-04-21 21:18 | Electrocardiograph Report ---
[address] [address] Test Date: 2018-04-17 Pat Name: Angelo West Department: EXAM10 Room: 3B Gender: M Agency Service Coordinator: : 1965 Requested By: Thomas Buitrago Order Number: [id number] Reading MD: Mahamed Ricketts Measurements Intervals [place] Rate: 89 P: 48 VT: 153 QRS: -9 QRSD: 82 T: 28 QT: 349 QTc: 425 Interpretive Statements Normal sinus rhythm Electronically Signed On 04-21-2018 21:16:37 EDT by Mahamed Ricketts
== END 2018-04-18 15:48 | disposition home or self-care (01) ==
LOC: 3BNU 10:46 → EMEROOARM 10:46 → SUATTDRO 13:41 → 3BNU 14:23
PROVIDERS: ADMIT Student in an Organized Health Care Education/Training Program; ATTEND Internal Medicine

== ENCOUNTER 2019-02-28 09:06 | Inpatient (IN) ==
--- NOTE | 2019-02-28 07:51 | Discharge Summary ---
<Charlotte Ovalle E - Last Filed: 02/28/19 08:56> Orders not resulted at time of discharge: Pending orders 02/28/19 01:00 XR post op reverse apex LT [XR] Routine Hemoglobin and Hematocrit [HEME] Routine Date of Encounter: 02/28/19 - Hospital Course Hospital course: Mr. West is a 53 year old male - Time Spent with Patient Total time spent providing and/or coordinating discharge services: - Discharge Medications Prescriptions: New Docusate Sodium [Colace] 100 mg PO BID 5 Days #10 capsule OxyCODONE Immed Rel [Roxicodone 5 MG] 5 mg PO Q6HR PRN 5 Days #20 tablet PRN Reason: Severe Pain Continued Carvedilol [Coreg] 6.25 mg PO BIDWM Levothyroxine Sodium [Tirosint] 25 mcg PO DAILY Ergocalciferol (VITAMIN D2) [Vitamin D2] 2,000 unit PO DAILY Glimepiride [Amaryl] 2 mg PO QAM Pantoprazole Sodium [Protonix] 40 mg PO DAILY Albuterol Sulfate [Ventolin Hfa] 2 puff IH QID PRN PRN Reason: Shortness Of Breath Furosemide [Lasix] 40 mg PO DAILY Nitroglycerin [Nitrolingual] 1 spray TL DAILY Metformin HCl [Glucophage] 1,000 mg PO BID Meclizine HCl [Verticalm] 25 mg PO DAILY PRN PRN Reason: Dizziness Empagliflozin [Jardiance] 25 mg PO DAILY Aspirin 81 mg PO DAILY Fluticasone/Vilanterol [Breo Ellipta 200-25 Mcg INH] 1 puff IH DAILY Losartan [Cozaar] 25 mg PO DAILY #30 tablet Atorvastatin Calcium [Lipitor] 80 mg PO HS #30 tab Isosorbide MONOnitrate (24 HR) [Imdur] 60 mg PO BID Home Medications: Albuterol Sulfate [Ventolin Hfa] 2 puff IH QID PRN 04/21/17 [History] Carvedilol [Coreg] 6.25 mg PO BIDWM 04/21/17 [History] Ergocalciferol (VITAMIN D2) [Vitamin D2] 2,000 unit PO DAILY 04/21/17 [History] Furosemide [Lasix] 40 mg PO DAILY 04/21/17 [History] Glimepiride [Amaryl] 2 mg PO QAM 04/21/17 [History] Levothyroxine Sodium [Tirosint] 25 mcg PO DAILY 04/21/17 [History] Pantoprazole Sodium [Protonix] 40 mg PO DAILY 04/21/17 [History] Empagliflozin [Jardiance] 25 mg PO DAILY 07/20/17 [History] Meclizine HCl [Verticalm] 25 mg PO DAILY PRN 07/20/17 [History] Metformin HCl [Glucophage] 1,000 mg PO BID 07/20/17 [History] Nitroglycerin [Nitrolingual] 1 spray TL DAILY 07/20/17 [History] Aspirin 81 mg PO DAILY 10/28/17 [History] Fluticasone/Vilanterol [Breo Ellipta 200-25 Mcg INH] 1 puff IH DAILY 10/28/17 [History] Atorvastatin Calcium [Lipitor] 80 mg PO HS #30 tab 04/18/18 [Rx] Losartan [Cozaar] 25 mg PO DAILY #30 tablet 04/18/18 [Rx] Docusate Sodium [Colace] 100 mg PO BID 5 Days #10 capsule 02/28/19 [Rx] Isosorbide MONOnitrate (24 HR) [Imdur] 60 mg PO BID 02/28/19 [History] OxyCODONE Immed Rel [Roxicodone 5 MG] 5 mg PO Q6HR PRN 5 Days #20 tablet 02/28/19 [Rx] Allergies/Adverse Reactions: Allergy/AdvReac Type Severity Reaction Status Date / Time No Known Allergies Allergy Verified 02/28/19 09:50 Primary care physician: Betsy Spencer CNP - Patient Status Disposition: Home, Self-Care Condition: Good - Discharge Instructions Follow Up With: Betsy Spencer CNP [Primary Care Provider] - Charlotte Ovalle PAC [Physician Yarn Inspector] - 03/10/19 1:45 pm Additional Instructions: Discharge Instructions: Total Shoulder Please call [facility] ([phone]), your Primary Care Physician, or report to the Emergency Room if you have any of the following symptoms: Nausea, vomiting, fever greater that 101.5, swelling, chest pain, shortness of breath, increased pain/redness/drainage/odor for your incision site, numbness/tingling, or any other concerning symptoms. ACTIVITY: Always keep your arm in the sling. Do not raise your arm away from your body. Do not use your arm to help with getting in or out of bed. No weight bearing permitted. Only perform those exercises given to you by your therapist. Incentive Spirometer 10 times an hour. MEDICATIONS: Upon discharge resume your home medications. Take all the medications as prescribed. Take a stool softener if taking narcotic pain medications. Stool softeners are only effective if you drink enough fluids. Drink 6-8 glass of water or fluids a day, unless this is not allowed for another health problem. Despite using stool softeners, if you haven't had a bowel movement in 3 days, please switch to a gentle laxative. Gentle laxatives are sold over the counter. You should have a bowel movement within 24 hours, if not call the office. You will be discharged from the hospital with a prescription for pain medication. You are encouraged to decrease the use of narcotic pain medication as tolerated. Should you require a refill, please call the office. [facility] prescribes narcotic pain medication for only 4-6 weeks after surgery. If you require pain medication beyond this time period, you may be referred to your Primary Care Physician or to the Pain Clinic for further evaluation. Plan ahead for refills on pain medication as many narcotics either need to be picked up at the office or mailed. It is best to call 48-72 hours in advance of needing a prescription refill so you don't run out of medication. To help control the post-operative pain, you may take NSAIDs (Aleve,Advil, Motrin, Ibuprofen, Naprosyn) or Tylenol as prescribed on the bottle in addition to the pain medication. WOUND CARE: Leave the dressing on for 7-10 days. You may change the dressing if it becomes saturated greater than 50%. Do not get the dressing wet at anytime. Wash your hands with antibacterial soap, rinse and dry prior to any wo und care. If you have elder the visiting nurse or rehab facility can remove the stapes 10-14 days after surgery and place steri-strips across the wound. Leave the steri-strips in place until they fall off on their own. You may let water from the shower run on top of the steri-strips. If you do not have a visiting nurse or rehab facility, you will need to return to the office at 10-14 days for the elder to be removed. If you have itching or redness around the dressing call the office. FOLLOW-UP: Please follow up with your surgeon in the orthopedic clinic, as scheduled <Charlotte Cleveland - Last Filed: 03/01/19 13:48> Orders not resulted at time of discharge: Pending orders 02/28/19 01:00 XR post op reverse apex LT [XR] Routine 02/28/19 09:38 US anesthesia pain block [US] Routine 02/28/19 12:20 Surgical Pathology [PTH] Routine 02/28/19 12:57 Hemoglobin and Hematocrit [HEME] Routine Date of Encounter: 03/01/19 Time of Encounter: 13:46 - Discharge Diagnosis (1) Status post reverse total arthroplasty of left shoulder Priority: Primary (f) Status: Acute (2) Rotator cuff arthropathy of left shoulder Priority: Primary Status: Chronic (3) CHF (congestive heart failure) Priority: Secondary Status: Chronic Qualifiers: Heart failure type: unspecified Heart failure chronicity: unspecified Qualified Code(s): I50.9 - Heart failure, unspecified (4) CAD (coronary artery disease) Priority: Secondary Status: Chronic Qualifiers: Coronary Disease-Associated Artery/Lesion type: [place] artery [place] vs. transplanted heart: [place] heart Associated angina: with stable angina Qualified Code(s): I25.118 - Atherosclerotic heart disease of [place] coronary artery with other forms of angina pectoris (5) COPD (chronic obstructive pulmonary disease) Priority: Secondary Status: Chronic Qualifiers: COPD type: unspecified COPD Qualified Code(s): J44.9 - Chronic obstructive pulmonary disease, unspecified (6) HLD (hyperlipidemia) Priority: Secondary Status: Chronic Qualifiers: Hyperlipidemia type: pure hypercholesterolemia Qualified Code(s): E78.00 - Pure hypercholesterolemia, unspecified; E78.0 - Pure hypercholesterolemia (7) HTN (hypertension) Priority: Secondary Status: Chronic Qualifiers: Hypertension type: essential hypertension Qualified Code(s): I10 - Essential (primary) hypertension (8) Obesity Priority: Secondary Status: Chronic Qualifiers: Obesity type: due to excess calories Obesity classification: unspecified obesity classification Serious obesity comorbidity presence: unspecified whether serious comorbidity present Qualified Code(s): E66.09 - Other obesity due to excess calories (9) Type 2 diabetes mellitus Priority: Secondary Status: Chronic Qualifiers: Diabetes mellitus half-way insulin use: unspecified half-way insulin use status Diabetes mellitus complication status: without complication Qualified Code(s): E11.9 - Type 2 diabetes mellitus without complications - Hospital Course Hospital course: Mr. West is a 53 year old male status post left TSR reverse 02/28/19 with medical history of DM2, CAD, CHF, COPD on 2L O2 at night, HTN, HLD, obesity. He participated in therapy and had an uneventful hospital course. He was discharged day of surgery in stable condition by Dr. Devi. He will follow up in [facility] office next week for reevaluation. - Time Spent with Patient Total time spent providing and/or coordinating discharge services: Date of admission: 02/28/19 Primary care physician: Betsy Spencer CNP Consults: 02/28/19 15:19 Consult to Occupational Therapy [CONS] Routine Comment: post shoulder surgery Reason for Consult: post shoulder surgery Does patient have active BEDREST order?: No Is patient medically & hemodynamically stable?: Yes Consult to Physical Therapy [CONS] Routine Comment: post shoulder surgery Reason for Consult: post shoulder surgery Does patient have active BEDREST order?: No Is patient medically & hemodynamically stable?: Yes Consult to Pie Bakery Laborer [CONS] Routine Reason for SW Consult: shoulder surgery RT Post Op Consult [CONS] Routine Discharging clinician: Marty Devi Anticipated date of discharge: 02/28/19 Labs on day of discharge: Labs from last 24 hours 02/28/19 09:36 POC Glucose 130 H - Impressions Shoulder X-Ray 02/28/19 01:00 IMPRESSION: Expected postsurgical changes from left reverse shoulder arthroplasty. D/ / Janice Rodriguez MD / Janice Rodriguez MD Interpreting Provider: Janice Rodriguez MD - Patient Status Functional capacity at discharge: independent ambulation Overall status at discharge: patient is back to baseline - Diet and Activity Activity: as per physical therapy Diet: advance to your usual diet
[2019-02-28] MEDS ORDERED: CeFAZolin Syr 2,000MG/20 ML 2,000 MG/20 ML SYRINGE IVPB ONE (09:22)
[2019-02-28] MEDS ORDERED: Albuterol 2.5 MG/3 ML NEBULIZER IH ONE (09:22)
[2019-02-28] MEDS ORDERED: Ringers Solution, Lactated 1,000 ML IVC SCH ×2 (09:30→15:19)
--- NOTE | 2019-02-28 09:35 | Anesthesia Evaluation PreOp ---
Date of Encounter: 02/28/19 Time of Encounter: 09:33 - Past History Planned Operation: LEFT TSA Cardiac History: HTN, Hyperlipidemia, Other (CAD, 90% dCX, NO STENT, NORMAL EF) Pulmonary History: COPD (O2 2LPM HS), [place] Dx OIL BURNER TECHNICIAN History: Denies Any Significant HX Other Medical History: Diabetes Type II, Thyroid, GERD Alcohol Use: none Drug use: none Medications and Allergies Albuterol Sulfate [Ventolin Hfa] 2 puff IH QID PRN 04/21/17 [History] Carvedilol [Coreg] 6.25 mg PO BIDWM 04/21/17 [History] Ergocalciferol (VITAMIN D2) [Vitamin D2] 2,000 unit PO DAILY 04/21/17 [History] Furosemide [Lasix] 40 mg PO DAILY 04/21/17 [History] Glimepiride [Amaryl] 2 mg PO QAM 04/21/17 [History] Levothyroxine Sodium [Tirosint] 25 mcg PO DAILY 04/21/17 [History] Pantoprazole Sodium [Protonix] 40 mg PO DAILY 04/21/17 [History] Polyethylene Glycol 3350 [MiraLAX] 17 gm PO BID PRN 04/21/17 [History] Empagliflozin [Jardiance] 25 mg PO DAILY 07/20/17 [History] Meclizine HCl [Verticalm] 25 mg PO DAILY PRN 07/20/17 [History] Metformin HCl [Glucophage] 1,000 mg PO BID 07/20/17 [History] Nitroglycerin [Nitrolingual] 1 spray TL DAILY 07/20/17 [History] Aspirin 81 mg PO DAILY 10/28/17 [History] Fluticasone/Vilanterol [Breo Ellipta 200-25 Mcg INH] 1 puff IH DAILY 10/28/17 [History] Tiotropium [place] [Spiriva Respimat] 2 puff IH DAILY 10/28/17 [History] Atorvastatin Calcium [Lipitor] 80 mg PO HS #30 tab 04/18/18 [Rx] Isosorbide MONOnitrate (24 HR) [Imdur] 90 mg PO DAILY #30 tab.er.24h 04/18/18 [Rx] Losartan [Cozaar] 25 mg PO DAILY #30 tablet 04/18/18 [Rx] Docusate Sodium [Colace] 100 mg PO BID 5 Days #10 capsule 02/28/19 [Rx] OxyCODONE Immed Rel [Roxicodone 5 MG] 5 mg PO Q6HR PRN 5 Days #20 tablet 02/28/19 [Rx] Allergy/AdvReac Type Severity Reaction Status Date / Time No Known Allergies Allergy Verified 04/17/18 13:32 - Meds/Allergy Pre-op Review Medications Reviewed: Yes Allergies Reviewed: Yes Beta Blockers on Current Med List: Yes If Beta Blockers taken, Date/Time (Last Dose taken): 0500 Anesthesia Exam O2 Sat Height 1.7 m Height 1.7 m Weight 112.945 kg Weight 112.945 kg O2 Sat by Pulse Oximetry 92 Vital Signs/O2 Sat/Glucose, Most Recent Temp Pulse Resp BP Pulse Ox 98.1 F 65 18 161/83 92 02/28/19 09:24 02/28/19 09:24 02/28/19 09:24 02/28/19 09:24 02/28/19 09:24 Weight: 113 KG - BMI 39 NPO (# of Hours): 8 - HEENT Mallampati: III Teeth: Missing, Poor dentition - Cardiac Rhythm: Regular - Pulmonary Breath Sounds: bilateral Clear Anesthesia Assess/Plan ASA Score: 3 Anesthetic Plan: General, Regional Nerve Block Monitoring Plan: Standard Monitors Recovery Plan: PACU
[2019-02-28] MEDS ORDERED: traMADol 50 MG TABLET PO PRN ×2 (09:38→15:19)
[2019-02-28] MEDS ORDERED: Ipratropium/Albuterol Neb 3 ML IH PRN (09:38)
[2019-02-28] MEDS ORDERED: *HR* OxyCODONE Immed Rel 5 MG TABLET PO PRN ×2 (09:42→15:19)
[2019-02-28] MEDS ORDERED: *HR* HYDROmorphone (PF) 1 MG/ML SYRINGE IVP PRN (09:42)
[2019-02-28] MEDS ORDERED: Acetaminophen IV 1,000 MG/100 ML INFUS..BTL IVPB ONE (09:42)
--- NOTE | 2019-02-28 09:47 | History & Physical Report ---
Date of Encounter: 02/28/19 Time of Encounter: 09:47 24 Hour HP Update - Instructions Instructions: If the History and Physical is less than 30 days old and was completed prior to A.M. admission and or procedure and has NOT been updated on calendar day of procedure please complete this update prior to performing procedure. - Update Patient reports changes in Medical Condition: No Changes in examination, assessment, or condition: No Changes in Medication: No Preop tests/diagnostics Reviewed: Yes Surgery Remains Indicated: Yes Consent for Planned Operative Procedure(s) Verified: Yes - Pre-Operative Checklist Preoperative Checklist Indicated: No Prophylactic Antibiotic Ordered: Yes Is VTE Prophylaxis Indicated?: Yes
[2019-02-28] MEDS ORDERED: *HR* FentaNYL (PF) 100 MCG/2 ML VIAL ONE (09:59)
[2019-02-28] MEDS ORDERED: *HR* Midazolam HCl 2 MG/2 ML VIAL ONE (09:59)
[2019-02-28] MEDS ORDERED: traMADol 50 MG TABLET ONE (09:59)
[2019-02-28] MEDS ORDERED: *HR* Propofol 200 MG/20 ML VIAL IVP ONE (09:59)
[2019-02-28] MEDS ORDERED: Lidocaine -MPF 2% 2 ML VIAL ONE (10:01)
[2019-02-28] MEDS ORDERED: Lidocaine -MPF 4% 5 ML AMPUL ONE (10:05)
[2019-02-28] MEDS ORDERED: Ropivacaine/PF 0.5% 30 ML VIAL ONE (10:56)
[2019-02-28] MEDS ORDERED: ROPIVACAINE/PF/NS 0.25% 1 EACH SYRINGE INTRAART ONE (10:56)
[2019-02-28] MEDS ORDERED: Ethanol\\Acetic Acid\\Na Ace\\Ben 1,000 ML IRRIG.SOLN IR ONE (11:09)
--- NOTE | 2019-02-28 11:29 | Anesthesia Procedures ---
Date of Encounter: 02/28/19 Time of Encounter: 11:10 Procedures: Anesthesia - Nerve Block Procedure Date: 02/28/19 Time: 11:10 Allergies/Adv Reactions: NKA Pre-op Diagnosis: Left shoulder rotator cuff arthropathy Surgical Procedure: Left total shoulder replacement, reverse Checklist: Correct Patient Identifier, Correct procedure, History checked Correct side: Left Blood Thinner: No Monitor Applied: EKG, BP, Pulse Oximetry Supplemental Oxygen via Nasal Cannula (L/min): 4 Sedation: Versed (mg): 2 Sedation: Fentanyl (mcg): 100 Indication: Post Op Analgesia Pre-op Neuro Deficits: No Block Type: Supraclavicular, Other (SCP/ICB) Catheter placed: No Sterile Technique: Yes Ultrasound used: Yes Anatomy identified: Yes Visual spread of Local: Yes Neuro Stimulation: No Blood on Needle Aspiration: No Smooth Injection of Local: Yes Pain with Injection of Local: No Prep: Chlorhexadine Needle: 22 x 50 mm Stimuplex Local: Ropivacaine (ropivicaine 0.5% 30ml supraclavicular/ropivicaine 0.25% 20ml SCP/ICB), Other (Decadron 8mg) Volume (cc): 50 Number of Attempts: 1 Complications: None/effective block Vitals: Vital Signs Temperature 98.1 F 02/28/19 09:24 Pulse Rate 65 02/28/19 09:24 Respiratory Rate 18 02/28/19 09:24 Blood Pressure 161/83 02/28/19 09:24 O2 Sat by Pulse Oximetry 92 02/28/19 09:24 Temperature 98.1 F 02/28/19 09:24 Pulse Rate 83 02/28/19 11:24 Respiratory Rate 18 02/28/19 11:24 Blood Pressure 125/77 02/28/19 11:24 O2 Sat by Pulse Oximetry 94 02/28/19 11:24
[2019-02-28] MEDS ORDERED: EPHEDrine 50 MG/ML VIAL ONE (12:00)
[2019-02-28] MEDS ORDERED: Ondansetron 4 MG/2 ML VIAL ONE (12:16)
[2019-02-28] MEDS ORDERED: Dexamethasone 4 MG/ML VIAL ONE (12:16)
--- NOTE | 2019-02-28 12:24 | Orthopedic Operative Note ---
Date of procedure: 02/28/19 Pre-op diagnosis: Left shoulder cuff tear arthropathy Post-op diagnosis: same Procedure: Procedure: Total Shoulder Replacment Reverse, left Estimated blood loss: 50 cc Hardware: Metal and polyethylene replacement: Arthrex 28, +2 , 35 mm post, glenoid baseplate, 4 locking 5.5 screw, 42+4 glenosphere, 9 apex humeral stem, poly insert 3 Exam Under anesthesia: Full motion no instability Procedural Notes: Irreparable rotator cuff tear Operative procedure: The patient was brought to the operating room and placed on the operating room table. After general anesthesia was administered the operative shoulder was examined. Findings were noted. The patient was placed in the modified beachchair position. All pressure points were padded appropriately. And the head was stabilized in the neutral position. The operative extremity was prepped and draped in the sterile surgical fashion. The patient received IV antibiotics prior to skin incision. A standard deltopectoral approach was made to the operative shoulder. Incision was made to the skin and subcutaneous tissue,hemo stasis was obtained with Bovie cautery. Using careful blunt dissection the cephalic vein was identified and mobilized medially. The deltopectoral interval was developed and the clavipectoral fascia was incised. The subscap was released off the lesser tuberosity and tagged with #2 FiberWire suture subscap was irreparable. The humerus was dislocated patient noted to have irreparable tear supraspinatus tendon, and the humeral cut was made along the anatomic neck. Anterior and posterior Bankart retractors were placed to expose the glenoid. The glenoid guide was seated and the centering hole was made. It was reamed with the appropriate reamer. The 28, +2, 35 mm post, baseplate was seated and secured with 4 locking 5.5 screw. The baseplate was irrigated and dried and the 42+4 Glenosphere was seated and secured with the Sandoval taper. The Sandoval taper was tested and found to be secure, glenosphere fixation was secondarily secured with the central screw. The humerus was redislocated and prepared with the diaphyseal reamers, followed by a broaching process up to the appropriate size 9 in the patient's anatomic version. The metaphyseal reamer was then utilized. Trial reduction found the shoulder to be relocatable. Trial components were removed and 9 stem was impacted in place in the patient's anatomic version. Trial reduction found the shoulder to be relocatable and stable with the appropriate 3 Trial component was removed and the real implant was seated and secured the shoulder was reduced. The shoulder had excellent motion and excel lent stability and no evidence of dislocation. The deep tissue was irrigated with pulse irrigation. The PA close the shoulder. The deltopectoral interval was closed with a running #1 PDS suture, subcutaneous tissue was irrigated and closed with 0 PDS suture, the skin was closed with Dermabond. The patient was placed in a sterile dressing, abduction brace and extubated. The patient was then transferred to the recovery room in stable condition. Anesthesia: GETA Surgeon: Marty Devi Was there an assistant baseball coach present: Yes Manufacturing Engineering Director: Anirudh Burks Estimated blood loss (cc): 50 Condition: stable Disposition: PACU
[2019-02-28 13:37] LABS: Hematocrit 42.9 % (37.5-50.1); Hemoglobin 13.4 g/dL (12.9-16.9)
--- NOTE | 2019-02-28 13:47 | Anesthesia Evaluation Post Op ---
Date of Encounter: 02/28/19 Time of Encounter: 13:42 - Vital Signs Vital Signs: vss - Lungs Lungs: Clear Ascult./Percussion - Airway Airway: Non-obstructed - Cardiovascular Baseline Rhythm - Mental Status Mental Status: Alert & Oriented, Answers Appropriately - Pain Pain Scale used: Alvin (Faces) - Nausea Vomiting Nausea Vomiting: Not Present - Hydration Hydration: Tolerates oral liquids - Discharge PostOp Status: Transfer Patient to floor
[2019-02-28] MEDS ORDERED: *HR* Dextrose 50 % in Water (Syg) 50 ML SYRINGE IVP PRN (15:19)
[2019-02-28] MEDS ORDERED: *HR* OxyCODONE/APAP 5/325 TABLET PO PRN (15:19)
[2019-02-28] MEDS ORDERED: D5% in Water 1,000 ML IVC PRN (15:19)
[2019-02-28] MEDS ORDERED: Temazepam 15 MG CAPSULE PO PRN (15:19)
[2019-02-28] MEDS ORDERED: MOM Conc 10 ML UD.LIQ PO PRN (15:19)
[2019-02-28] MEDS ORDERED: Ondansetron 4 MG/2 ML VIAL IVP PRN (15:19)
[2019-02-28] MEDS ORDERED: Dextrose Gel 15 GM/37.5 ML TUBE PO PRN ×2 (15:19)
[2019-02-28] MEDS ORDERED: Sennosides 8.6 MG TABLET PO PRN (15:19)
[2019-02-28] MEDS ORDERED: *HR* Enoxaparin 30 MG/0.3 ML SYRINGE SQ ONE (16:00)
[2019-02-28] MEDS ORDERED: Insulin LISPRO 300 UNITS/3 ML VIAL SQ SCH ×2 (16:30→21:00)
[2019-02-28] MEDS ORDERED: *HR* Metformin 500 MG TABLET PO SCH (17:00)
[2019-02-28 17:33] VITALS: BP 135/89
[2019-02-28] MEDS ORDERED: *HR* Enoxaparin 30 MG/0.3 ML SYRINGE SQ SCH (18:00)
[2019-02-28] MEDS ORDERED: Isosorbide MONOnitrate (24 HR) 60 MG TAB.ER.24H PO SCH (21:00)
[2019-03-01] MEDS ORDERED: Levothyroxine 25 MCG TABLET PO SCH (06:30)
[2019-03-01] MEDS ORDERED: (Fluticasone/Vilanterol [Breo Ellipta 200-25 Mcg Inh] IH SCH (09:00)
[2019-03-01] MEDS ORDERED: Cholecalciferol (D-3) 1,000 UNIT (25MCG) TABLET PO SCH (09:00)
[2019-03-01] MEDS ORDERED: Furosemide 40 MG TABLET PO SCH (09:00)
[2019-03-01] MEDS ORDERED: *HR* Glimepiride 2 MG TABLET PO SCH (09:00)
[2019-03-01] MEDS ORDERED: Nitroglycerin Spray 4.9 GM BOTTLE TL SCH (09:00)
[2019-03-01] MEDS ORDERED: (Empagliflozin [Jardiance] 25 MG) PO SCH (09:00)
[2019-03-01] MEDS ORDERED: Aspirin 81 MG TAB.CHEW PO SCH (09:00)
== END 2019-02-28 17:33 | disposition home or self-care (01) | DRG 483 ==
LOC: SAMDAY 09:06 → 3NENU 15:29
PROVIDERS: ADMIT Orthopaedic Surgery; ATTEND Orthopaedic Surgery